=== PATIENT | female | born 1955 | race Caucasian/White ===

== ENCOUNTER 2016-02-25 14:14 | Inpatient (IN) | payer BC, MEDICAID ==
--- NOTE | 2016-02-25 14:52 | ED Physician Chart ---
Chief Complaint/HPI - Patient Information Date Seen:: 02/25/16 Time Seen:: 14:37 Chief Complaint:: rectal pain History of Present Illness:: THIS IS A 60 YEAR OLD FEMALE SENT FROM THE [facility]IOR CARE FOR AN EVALUATION OF HER RECTAL PAIN AND OPEN WOUND WITH A HISTORY OF RECTAL CANCER. SHE ALSO HAS HYPERTENSION, ANEMIA AND MAJOR DEPRESSIVE DISORDER Allergies:: IODINE Historian:: Medical Records Review:: Nurse's Note Reviewed Review of Systems - Review of Systems General/Constitutional: No fever, No chills, No weight loss, No weakness, No diaphoresis, No edema, No loss of appetite Skin: No skin lesions, No rash, No bruising Head: No headache, No light-headedness Eyes: No loss of vision, No pain, No diplopia ENT: No earache, No nasal drainage, No sore throat, No tinnitus Neck: No neck pain, No swelling, No thyromegaly, No stiffness, No mass noted Cardio Vascular: No chest pain, No palpitations, No PND, No orthopnea, No edema Pulmonary: No SOB, No cough, No sputum, No wheezing GI: No nausea, No vomiting, No diarrhea, No pain, No melena, No hematochezia, No constipation, No hematemesis, Other (THERE IS A LESION COMING OUT OF THE RECTUM THAT IS WET SWOLLEN AND TENDER.) G/U: No dysuria, No frequency, No hematuria Musculoskeletal: No bone or joint pain, No back pain, No muscle pain Endocrine: No polyuria, No polydipsia Psychiatric: No prior psych history, No depression, No anxiety, No suicidal ideation Hematopoietic: No bruising, No lymphadenopathy Allergic/Immuno: No urticaria, No angioedema Neurological: No syncope, No focal symptoms, No weakness, No paresthesia, No headache, No seizure, No dizziness, No confusion, No vertigo Past Medical History - Past Medical History Obtainable: Yes Past Medical History: HTN, Other (DEPRESSION) Family History: None Social History: Non Smoker, No Alcohol, No Drug Use Surgical History: None Psychiatricy History: Depression Medication: Reviewed Family Medical History - Family Member Father Hx Family Cancer: Yes Hx Family Coronary Artery Disease: Yes Hx Family Hypertension: Yes Physical Exam - Physical Examination General/Constitutional: Awake, Well-developed, well-nourished, Alert, No distress, GCS 15, Non-toxic appearing, Ambulatory Head: Atraumatic Eyes: Lids, conjuctiva normal, PERRL, EOMI Skin: Nl inspection, No rash, No skin lesions, No ecchymosis, Well hydrated, No lymphadenopathy ENMT: External ears, nose nl, Nasal exam nl, Lips, teeth, gums nl Neck: Nontender, Full ROM w/o pain, No JVD, No nuchal rigidity, No bruit, No mass, No stridor Respiratory: Nl effort/Exclusion, Clear to Auscultation, No Wheeze/Rhonchi/Rales Cardio Vascular: RRR, No murmur, gallop, rubs, NL S1 S2 GI: No tenderness/rebounding/guarding, No organomegaly, No hernia, Normal BS's, Nondistended, No mass/bruits, No McBurney tenderness, Rectum exam nl (THERE IS A LARGE MASS COMING OUT OF THE RECTUM WITH THE SURROUNDING AREA SWELLING AND TENDERNESS.) : No CVA tenderness Extremities: No tenderness or effusion, Full ROM, normal strength in all extremities, No edema, Normal digits & nails Neuro/Psych: Alert/oriented, DTR's symmetric, Normal sensory exam, Normal motor strength, Judgement/insight normal, Mood normal, Normal gait, No focal deficits Misc: normal gait, Normal back, No paraspinal tenderness Labs/Radiology/EKG Results - Lab Results Results: Abnormal Lab Results 02/25/16 02/25/16 02/25/16 14:48 14:48 14:48 WBC 10.1 RBC 3.81 Hgb 10.1 L Hct 30.4 L MCV 79.7 L MCH 26.5 L MCHC Differential 33.3 RDW 16.4 Plt Count 486 H MPV 7.1 Neutrophils % 81.9 H Lymphocytes % 8.4 L Monocytes % 8.1 Eosinophils % 1.2 Basophils % 0.4 PT 10.8 INR 1.08 Sodium 133 L Potassium 4.0 Chloride 102 Carbon Dioxide 30.6 Anion Gap 4.4 L BUN 9 Creatinine 0.4 L Est GFR ( Amer) > 60.0 Est GFR (Non-Af Amer) > 60.0 BUN/Creatinine Ratio 22.5 Glucose 101 Calcium 9.4 Total Bilirubin 0.3 AST 15 ALT 8 Alkaline Phosphatase 106 H Troponin I Total Protein 6.4 Albumin 2.9 L Globulin 3.5 Albumin/Globulin Ratio 0.8 L 02/25/16 14:48 WBC RBC Hgb Hct MCV MCH MCHC Differential RDW Plt Count MPV Neutrophils % Lymphocytes % Monocytes % Eosinophils % Basophils % PT INR Sodium Potassium Chloride Carbon Dioxide Anion Gap BUN Creatinine Est GFR ( Amer) Est GFR (Non-Af Amer) BUN/Creatinine Ratio Glucose Calcium Total Bilirubin AST ALT Alkaline Phosphatase Troponin I < 0.01 L Total Protein Albumin Globulin Albumin/Globulin Ratio - Radiology Results Results: NO FOCAL CONSOLIDATION LEFT LUNG 3mm leison - EKG Interpretations EKG Time:: 15:04 Rhythm: SINUS Challenge: RIGHT Rate: 72 ED Septic Shock - . 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
[2016-02-25 15:10] LABS: % BASOPHILS 0.4 % (0.0-2.0); % EOSINOPHILS 1.2 % (0.0-5.0); % LYMPHOCYTES 8.4 % (20.0-50.0); % MONOCYTES 8.1 % (2.0-10.0); % NEUTROPHILS 81.9 % (40.0-80.0); HEMATOCRIT 30.4 % (35.0-45.0); HEMOGLOBIN 10.1 gm/dL (11.7-15.5); MEAN CELL VOLUME 79.7 fl (81-100); MEAN CORPUSCULAR HEMOGLOBIN 26.5 pg (27.0-31.0); MEAN CORPUSCULAR HGB CONC 33.3 pg (28.0-36.0); MEAN PLATELET VOLUME 7.1 fl; NEUTROPHILE ABSOLUTE 8.4 Th/cmm (1.8-8.0); PLATELET COUNT 486 Th/cmm (150-400); RED BLOOD COUNT 3.81 Mil/cmm (3.80-5.10); RED CELL DISTRIBUTION WIDTH 16.4 % (11.5-20.0); WHITE BLOOD COUNT 10.1 Th/cmm (4.8-10.8)
[2016-02-25 15:28] LABS: ALB/GLOB RATIO 0.8 (1.0-1.8); ALKALINE PHOSPHATASE 106 U/L (34-104); ANION GAP 4.4 (7.0-16.0); BILIRUBIN,TOTAL 0.3 mg/dL (0.3-1.0); BUN - UREA NITROGEN 9 mg/dL (7-25); BUN/CREATININE RATIO 22.5; CALCIUM SERUM 9.4 mg/dL (8.6-10.3); CARBON DIOXIDE 30.6 mEq/L (21.0-31.0); CHLORIDE 102 mEq/L (98-107); CREATININE - SERUM 0.4 mg/dL (0.6-1.2); GLUCOSE 101 mg/dL (70-105); SGOT 15 U/L (13-39); SGPT/ALT 8 U/L (7-52); SODIUM SERUM 133 mEq/L (136-145)
[2016-02-25 15:30] LABS: INR 1.08 (0.5-1.4); PROTHROMBIN TIME (TEST) 10.8 SECONDS (9.5-11.5)
--- NOTE | 2016-02-25 16:09 | Diagnostic Imaging Report ---
CHEST X-RAY: AP view INDICATION: Malignancy COMPARISON: None FINDINGS: Right Port-A-Cath is seen with tip in the right atrium. No focal consolidation pleural effusions. There is 3 mm density of the left lung base. Heart size is normal. Atherosclerosis of the aortic arch is noted with tortuous aorta. Osseous structures are intact. IMPRESSION: No focal airspace consolidation identified 3 mm density of the left lung base, nonspecific, and may represent a small granuloma or may be due to superimposition of bronchovascular structures. Correlation with old exams of the helpful. Given history of malignancy if warranted,short-term follow-up CT of the chest would provide for additional detail and assessment. Right Port-A-Cath with tip in the right atrium. Tortuous aorta with atherosclerosis the aortic arch.
[2016-02-25 16:34] LABS: URINE BILIRUBIN NEGATIVE (NEGATIVE); URINE BLOOD LARGE (NEGATIVE); URINE COLOR YELLOW; URINE GLUCOSE (UA) NEGATIVE (NEGATIVE); URINE KETONE NEGATIVE (NEGATIVE); URINE PROTEIN 100 mg/dL (NEGATIVE); URINE UROBILINOGEN 0.2 E.U./dL (0.2 - 1.0)
[2016-02-25 16:36] LABS: URINE BACTERIA MANY /hpf (NONE SEEN); URINE EPITHELIAL CELLS NONE SEEN /lpf (FEW); URINE RBC >100 /hpf (0-5); URINE WBC >100 /hpf (0-5)
[2016-02-26 00:01] VITALS: BP 122/64
[2016-02-26] MEDS: Hydrocodone/APAP 5mg/325mg Tab PO PRN ×3 (00:33→13:51)
[2016-02-26] MEDS: Sodium Chloride 0.9% 1,000 ML IV SCH (00:52)
[2016-02-26] MEDS ORDERED: Hydrocodone/APAP 10 mg/325 mg Tab PO PRN (11:21)
[2016-02-26] MEDS ORDERED: ONDANSETRON HCL 8 MG PO PRN (11:21)
[2016-02-26] MEDS ORDERED: APAP/Oxycodone 5/325mg Oral Tab PO PRN (11:58)
--- NOTE | 2016-02-26 12:40 | History & Physical Pre-OP ---
CHIEF COMPLAINT: Rectal pain. HISTORY OF PRESENT ILLNESS: This is a 60-year-old lady with history of rectal cancer diagnosed about 2 years ago, status post colon resection with colostomy placement, who has been experiencing worsening rectal pain for the last couple of weeks or so. Apparently, the patient also has had an open wound around the rectum for a few days and has been noted to be draining. She denies any fevers, denies any UTI symptomatology and denies any previous similar symptoms. As mentioned above, she was diagnosed with cancer about 2 years ago and has a Perm-A-Cath where she gets chemotherapy on a weekly basis. She is under the care of Dr. Corona. PAST MEDICAL HISTORY: As noted above, also history of hypertension, anemia and depressive disorder. PAST SURGICAL HISTORY: As noted above. FAMILY HISTORY: There is a history of CA. ALLERGIES: IODINE AND PROPOXYPHENE. MEDICATIONS: As an outpatient, iron sulfate 325 b.i.d., atenolol 25 daily, Percocet 5/325 q. 8 hours p.r.n. for severe pain, Tylenol 650 q. 4 p.r.n. for mild pain, [place] 10/325 q. 4 p.r.n. for breakthrough pain, Zofran 8 mg q. 8 hours p.r.n. for nausea, vomiting, Zoloft 50 mg every day, Ativan 0.5 q. 6 p.r.n. for anxiety REVIEW OF SYSTEMS: CONSTITUTIONAL: She denies any fever or chills. CARDIAC: No chest pain, palpitations. PULMONARY: No cough or sputum production. GASTROINTESTINAL: Please refer to the HPI. She also was admitted to [facility] ([place]) on the where she was diagnosed with perianal abscess. GENITOURINARY: Denies any dysuria or hematuria. NEUROLOGIC: No changes in vision. PHYSICAL EXAMINATION: VITAL SIGNS: Temperature 99.9, pulse 77, respirations 18, BP 122/73, satting 94% on room air, T-max was 101.1. GENERAL: She is a well-developed, thin female, not in acute distress, lying in bed. HEAD AND NECK: Normocephalic, atraumatic. Pupils reactive to light. CARDIOVASCULAR: Regular rate and rhythm without any murmurs. LUNGS: Clear to auscultation bilaterally. ABDOMEN: Soft, supple. There is a colostomy bag in place. She does have bowel sounds. RECTAL: There is surrounding erythema and swelling and tenderness in the perianal area. Currently, there is no drainage noted. This erythema is more pronounced on the right medial buttock area. LABORATORY DATA: White count 10.1, H and H 10/30, platelet count of 486. INR is 1.08. Sodium 133, potassium 4.0, BUN 4, creatinine 0.4, glucose 101. Alkaline phosphatase 106, troponins less than 0.01. Albumin 2.9. UA showed positive for protein, large blood, large leukocyte esterase, over 100 rbc's and over 100 wbc's. Blood cultures showed Gram-positive cocci. DIAGNOSTICS: Chest x-ray shows 3 mm density of the left lung base. There is a right Port-A-Cath noted at the right atrium. IMPRESSION: 1. Fever, sepsis. 2. Gram-positive cocci bacteremia. 3. Perirectal abscess/cellulitis. Given her history of colorectal CA, we will have to rule out fistula. 4. Urinary tract infection. 5. History of rectal cancer, currently undergoing chemotherapy. 6. Left lung base density, likely representing a small granuloma. 7. History of chronic anemia. 8. History of depression. PLAN: The patient has been admitted to the medical/surgical floor for management and care. The patient has been placed on IV antibiotics, namely Rocephin and I will add vanco given her current blood culture findings. A rectal wound culture will be ordered. We will follow urine C and S. Will get MR from [facility] where pt apparently had a CT scan of the pelvis and abdomen for further evaluation. The patient will be placed on supportive care for pain management and will be kept on her other medications as scheduled. Oncology eval with Dr. Corona will be asked for as well. JOB# [id number] MELISSA
[2016-02-26] MEDS ORDERED: APAP/Oxycodone 5/325mg Oral Tab PO SCH (15:00)
[2016-02-26] MEDS: Ferrous Sulfate 325 MG TAB PO SCH (16:16)
[2016-02-26] MEDS ORDERED: cefTRIAXone 1 GM in Sodium Chloride 0.9% 50 ML IV SCH (18:00)
--- NOTE | 2016-02-26 18:11 | Consultation ---
HEMATOLOGY/ONCOLOGY CONSULTATION REFERRING PHYSICIAN: Dr. Brown. REASON FOR CONSULTATION: Rectal cancer. HISTORY OF PRESENT ILLNESS: The patient is a 60-year-old female who was admitted with pain and fever and discharge from the rectal area. She was found to have perirectal abscess on the left side and admitted and started on IV antibiotics. She was also found to have urinary tract infection. She is known to me for the past over 2 years. She initially presented with locally advanced rectal cancer treated with chemo radiation and then declined surgery and she did not receive any treatment for a while and then presented with progressive disease and fungating mass and was started on chemotherapy for palliative purpose. The patient felt better and the rectal mass regressed and improved over time. She was initially managed with colostomy at the time of diagnosis to allow delivery of the radiation therapy and chemotherapy and she continued to have the colostomy until now. SOCIAL HISTORY: She resides in a nursing facility. PAST MEDICAL HISTORY: Hypertension and depression. MEDICATIONS: Reviewed. PHYSICAL EXAMINATION: GENERAL: She is awake, alert, and oriented. VITAL SIGNS: T-max 101.1. HEENT: Mild pallor. No mucosal lesions. CHEST: Clear. MediPort in place. ABDOMEN: Colostomy in place. Anal area, there is a fungating mass in the rectum and there is left side perianal ulcer with purulent base that looks like it was an abscess and it opened recently. LABORATORY DATA: White count 10.1 and platelets 486,000. Chemistry was seen. ASSESSMENT AND PLAN: 1. Locally advanced rectal cancer, unresectable. The goal of treatment is palliative. 2. Perianal abscess and possible fistula. I will obtain CT scan of the abdomen and pelvis for evaluation. I will follow up on further chemotherapy at this time until the antibiotics therapy is completed. She will require wound care for dressing of the perianal ulcer. Thank you Dr. Brown for the opportunity to participate in the care of this interesting case for you. JOB# [id number]
[2016-02-26] MEDS ORDERED: Non-Formulary Item 1 EA (Temazepam [Restoril] 30 MG) PO SCH (21:00)
[2016-02-27 06:44] LABS: % BASOPHILS 0.1 % (0.0-2.0); % EOSINOPHILS 2.3 % (0.0-5.0); % LYMPHOCYTES 13.3 % (20.0-50.0); % MONOCYTES 8.1 % (2.0-10.0); % NEUTROPHILS 76.2 % (40.0-80.0); HEMOGLOBIN 11.6 gm/dL (11.7-15.5); MEAN CELL VOLUME 80.7 fl (81-100); MEAN CORPUSCULAR HEMOGLOBIN 26.3 pg (27.0-31.0); MEAN CORPUSCULAR HGB CONC 32.6 pg (28.0-36.0); MEAN PLATELET VOLUME 7.6 fl; NEUTROPHILE ABSOLUTE 5.4 Th/cmm (1.8-8.0); PLATELET COUNT 496 Th/cmm (150-400); RED BLOOD COUNT 4.43 Mil/cmm (3.80-5.10); RED CELL DISTRIBUTION WIDTH 16.9 % (11.5-20.0)
[2016-02-27 06:49] LABS: ANION GAP 10.4 (7.0-16.0); BUN - UREA NITROGEN 5 mg/dL (7-25); CALCIUM SERUM 9.7 mg/dL (8.6-10.3); CARBON DIOXIDE 26.5 mEq/L (21.0-31.0); CHLORIDE 104 mEq/L (98-107); CREATININE - SERUM 0.5 mg/dL (0.6-1.2); GLUCOSE 86 mg/dL (70-105); POTASSIUM SERUM 3.9 mEq/L (3.5-5.1); SODIUM SERUM 137 mEq/L (136-145)
[2016-02-27 08:00] LABS: HEMATOCRIT 35.7 % (35.0-45.0); WHITE BLOOD COUNT 7.1 Th/cmm (4.8-10.8)
[2016-02-27] MEDS: Ferrous Sulfate 325 MG TAB PO SCH ×2 (08:32→16:13)
[2016-02-27] MEDS: Enoxaparin 40 mg/0.4 mL 0.4mL Syr SUBQ SCH (08:33)
[2016-02-27] MEDS: Hydrocodone/APAP 5mg/325mg Tab PO PRN ×2 (13:25→20:02)
[2016-02-28] MEDS: Sodium Chloride 0.9% 1,000 ML IV SCH ×2 (03:12→21:26)
[2016-02-28] MEDS: Hydrocodone/APAP 5mg/325mg Tab PO PRN ×3 (05:24→17:39)
[2016-02-28 06:24] LABS: HEMOGLOBIN 10.4 gm/dL (11.7-15.5)
[2016-02-28 06:43] LABS: ANION GAP 5.2 (7.0-16.0); BUN - UREA NITROGEN 4 mg/dL (7-25); CALCIUM SERUM 9.1 mg/dL (8.6-10.3); CARBON DIOXIDE 25.6 mEq/L (21.0-31.0); CHLORIDE 109 mEq/L (98-107); CREATININE - SERUM 0.5 mg/dL (0.6-1.2); GLUCOSE 85 mg/dL (70-105); POTASSIUM SERUM 3.8 mEq/L (3.5-5.1); SODIUM SERUM 136 mEq/L (136-145)
[2016-02-28 06:47] LABS: % BASOPHILS 0.7 % (0.0-2.0); % EOSINOPHILS 3.2 % (0.0-5.0); % LYMPHOCYTES 15.6 % (20.0-50.0); % MONOCYTES 9.2 % (2.0-10.0); % NEUTROPHILS 71.3 % (40.0-80.0); MEAN CELL VOLUME 81.4 fl (81-100); MEAN CORPUSCULAR HEMOGLOBIN 26.8 pg (27.0-31.0); MEAN CORPUSCULAR HGB CONC 32.9 pg (28.0-36.0); MEAN PLATELET VOLUME 7.5 fl; NEUTROPHILE ABSOLUTE 4.3 Th/cmm (1.8-8.0); PLATELET COUNT 406 Th/cmm (150-400); RED BLOOD COUNT 3.87 Mil/cmm (3.80-5.10); RED CELL DISTRIBUTION WIDTH 16.7 % (11.5-20.0)
[2016-02-28 06:56] LABS: HEMATOCRIT 31.5 % (35.0-45.0)
[2016-02-28] MEDS: Ferrous Sulfate 325 MG TAB PO SCH (08:48)
[2016-02-28] MEDS: Enoxaparin 40 mg/0.4 mL 0.4mL Syr SUBQ SCH (08:50)
--- NOTE | 2016-02-28 12:27 | General Progress Note ---
Subjective - Review of Systems Service Date: 02/28/16 Subjective: Pain is less Objective - Results Result Diagrams: 02/28/16 06:05 02/28/16 06:05 Recent Labs: Laboratory Last Values WBC 6.0 Th/cmm (4.8-10.8) 02/28/16 06:05 RBC 3.87 Mil/cmm (3.80-5.10) 02/28/16 06:05 Hgb 10.4 gm/dL (11.7-15.5) L 02/28/16 06:05 Hct 31.5 % (35.0-45.0) L D 02/28/16 06:05 MCV 81.4 fl (81-100) 02/28/16 06:05 MCH 26.8 pg (27.0-31.0) L 02/28/16 06:05 MCHC Differential 32.9 pg (28.0-36.0) 02/28/16 06:05 RDW 16.7 % (11.5-20.0) 02/28/16 06:05 Plt Count 406 Th/cmm (150-400) H 02/28/16 06:05 MPV 7.5 fl 02/28/16 06:05 Neutrophils % 71.3 % (40.0-80.0) 02/28/16 06:05 Lymphocytes % 15.6 % (20.0-50.0) L 02/28/16 06:05 Monocytes % 9.2 % (2.0-10.0) 02/28/16 06:05 Eosinophils % 3.2 % (0.0-5.0) 02/28/16 06:05 Basophils % 0.7 % (0.0-2.0) 02/28/16 06:05 PT 10.8 SECONDS (9.5-11.5) 02/25/16 14:48 INR 1.08 (0.5-1.4) 02/25/16 14:48 Sodium 136 mEq/L (136-145) 02/28/16 06:05 Potassium 3.8 mEq/L (3.5-5.1) 02/28/16 06:05 Chloride 109 mEq/L (98-107) H 02/28/16 06:05 Carbon Dioxide 25.6 mEq/L (21.0-31.0) 02/28/16 06:05 Anion Gap 5.2 (7.0-16.0) L 02/28/16 06:05 BUN 4 mg/dL (7-25) L 02/28/16 06:05 Creatinine 0.5 mg/dL (0.6-1.2) L 02/28/16 06:05 Est GFR ( Amer) > 60.0 ml/min 02/28/16 06:05 Est GFR (Non-Af Amer) > 60.0 ml/min 02/28/16 06:05 BUN/Creatinine Ratio 8.0 02/28/16 06:05 Glucose 85 mg/dL (70-105) 02/28/16 06:05 Calcium 9.1 mg/dL (8.6-10.3) 02/28/16 06:05 Magnesium 1.8 mg/dL (1.9-2.7) L 02/28/16 06:05 Total Bilirubin 0.3 mg/dL (0.3-1.0) 02/25/16 14:48 AST 15 U/L (13-39) 02/25/16 14:48 ALT 8 U/L (7-52) 02/25/16 14:48 Alkaline Phosphatase 106 U/L (34-104) H 02/25/16 14:48 Troponin I < 0.01 ng/mL (0.01-0.05) L 02/25/16 14:48 Total Protein 6.4 gm/dL (6.0-8.3) 02/25/16 14:48 Albumin 2.9 gm/dL (3.7-5.3) L 02/25/16 14:48 Globulin 3.5 gm/dL 02/25/16 14:48 Albumin/Globulin Ratio 0.8 (1.0-1.8) L 02/25/16 14:48 Urine Source CLEAN C 02/25/16 13:30 Urine Color YELLOW 02/25/16 13:30 Urine Clarity CLOUDY (CLEAR) H 02/25/16 13:30 Urine pH 7.0 02/25/16 13:30 Ur Specific [place] 1.015 (1.005-1.030) 02/25/16 13:30 Urine Protein 100 mg/dL (NEGATIVE) H 02/25/16 13:30 Urine Glucose (UA) NEGATIVE mg/dL (NEGATIVE) 02/25/16 13:30 Urine Ketones NEGATIVE mg/dL (NEGATIVE) 02/25/16 13:30 Urine Blood LARGE (NEGATIVE) H 02/25/16 13:30 Urine Nitrate NEGATIVE (NEGATIVE) 02/25/16 13:30 Urine Bilirubin NEGATIVE (NEGATIVE) 02/25/16 13:30 Urine Urobilinogen 0.2 E.U./dL (0.2 - 1.0) 02/25/16 13:30 Ur Leukocyte Esterase LARGE (NEGATIVE) H 02/25/16 13:30 Urine RBC >100 /hpf (0-5) H 02/25/16 13:30 Urine WBC >100 /hpf (0-5) H 02/25/16 13:30 Ur Epithelial Cells NONE SEEN /lpf (FEW) 02/25/16 13:30 Urine Bacteria MANY /hpf (NONE SEEN) 02/25/16 13:30 Vancomycin Trough 7.1 ug/mL (10-20) L 02/28/16 11:15 - Physical Exam Vitals and I&O: Vital Signs Temp 98.4 F 02/28/16 04:00 Pulse 97 02/28/16 08:46 Resp 19 02/28/16 04:00 BP 124/63 02/28/16 08:46 Pulse Ox 98 02/28/16 04:00 Intake & Output 02/27/16 02/28/16 02/28/16 18:59 06:59 18:59 Intake Total 950 240 Output Total 350 600 Balance 600 -360 Intake: Intake, IV Amount 300 Vancomycin HCl 1 gm In 250 Sodium Chloride 0.9% 250 ml @ 166.667 mls/hr IV Q24H EZRA Rx#:[id number] cefTRIAXone 1 gm In 50 Sodium Chloride 0.9% 50 ml @ 100 mls/hr IV Q24HR EZRA Rx#:[id number] Oral 650 240 Output: Urine 350 600 Other: # Voids 2 Active Medications: Current Medications Acetaminophen (Tylenol) 650 mg PO Q4HR PRN PRN Reason: Fever > 101 Stop: 04/26/16 11:20 Acetaminophen/Hydrocodone Bitart ([place] 5mg/325mg) 1 tab PO Q6H PRN PRN Reason: Pain (Moderate) Stop: 04/25/16 23:46 Last Admin: 02/28/16 11:37 Dose: 1 tab Acetaminophen/Hydrocodone Bitart ([place] 10 Mg/325 Mg) 1 tab PO Q4H PRN PRN Reason: Pain (Moderate) Stop: 04/26/16 11:20 Atenolol (Tenormin) 25 mg PO DAILY [facility] Stop: 04/26/16 11:29 Last Admin: 02/28/16 08:46 Dose: 25 mg Enoxaparin Sodium (Lovenox) 40 mg SUBQ DAILY [facility] Stop: 04/27/16 08:59 Last Admin: 02/28/16 08:50 Dose: 40 mg Ferrous Sulfate (Iron) 325 mg PO BID [facility] Stop: 04/26/16 16:59 Last Admin: 02/28/16 08:48 Dose: 325 mg Ceftriaxone Sodium 1 gm/ (Sodium Chloride) 50 mls @ 100 mls/hr IV Q24HR [facility] Stop: 04/26/16 17:59 Last Infusion: 02/27/16 09:33 Dose: Infused Sodium Chloride (Nacl 0.9%) 1,000 mls @ 75 mls/hr IV .[id number] [facility] Stop: 04/25/16 23:55 Last Admin: 02/28/16 03:12 Dose: 75 mls/hr Vancomycin HCl 1 gm/ Sodium (Chloride) 250 mls @ 166.667 mls/hr IV Q24H [facility] Stop: 04/26/16 12:14 Last Admin: 02/27/16 11:35 Dose: 166.67 mls/hr Lorazepam (Ativan) 1 mg IVP Q8HR PRN; Protocol PRN Reason: Agitation Stop: 04/25/16 23:48 Last Admin: 02/26/16 20:48 Dose: 1 mg Lorazepam (Ativan) 0.5 mg PO Q6HR PRN; Protocol PRN Reason: Agitation Stop: 04/26/16 11:20 Last Admin: 02/26/16 12:35 Dose: 0.5 mg Ondansetron HCl (Zofran Odt) 8 mg PO Q8H PRN PRN Reason: NAUSEA Stop: 04/26/16 11:28 Oxycodone/Acetaminophen (Percocet 5/325mg Oral Tab) 1 tab PO Q4H PRN PRN Reason: Pain (Severe) Stop: 04/26/16 11:57 Last Admin: 02/27/16 08:32 Dose: 1 tab Sertraline HCl (Zoloft) 50 mg PO DAILY [facility]RA PRN Reason: Protocol Stop: 04/26/16 11:29 Last Admin: 02/28/16 08:48 Dose: 50 mg Temazepam (Restoril) 30 mg PO HS PRN PRN Reason: SLEEP Stop: 04/26/16 11:29 Last Admin: 02/27/16 22:16 Dose: 30 mg Zolpidem Tartrate (Ambien) 5 mg PO HS PRN PRN Reason: Insomnia Stop: 04/25/16 23:50 General: Alert, Oriented x3, Cooperative, No acute distress HEENT: Atraumatic Neck: Supple Cardiovascular: Regular rate Lungs: Clear to auscultation Abdomen: Bowel sounds, Soft Extremities: Other (No edema) Neurological: Normal gait Skin: Other (Redness and swealling in perianal area) Assessment/Plan - Assessment Assessment: Patieny is awake, alert, calm, in no acute distress. Pain in anal area improving - Plan Plan: Abdominal and Pelvic CT are requested. Will continue to monitoring
--- NOTE | 2016-02-29 00:01 | Admit Criteria Form ---
Admit Criteria Forms - Admit Criteria Diagnosis: URINARY COMPLICATIONS Clinical Indications for Inpatient Care (Place 'X' for any and all applicable criteria): Ongoing inpatient care may be indicated for urinary complications with ANY ONE of the following: [X ]I. Urinary tract infection requiring inpatient care as indicated by ANY ONE of the following(8)(19)(20): [ ]a) Severe symptoms (eg, high fever, severe pain) [ ]b) Vomiting or dehydration requiring ongoing inpatient care [ X]c) IV antibiotic needs that cannot be managed at lower level of care [ ]d) Hemodynamic instability [ ]e) Obstruction of collecting system by stone or tumor [ ]II. Urinary retention requiring drainage or surgery (3)(4)(5)(17)(18) [ ]III. Renal failure (Use Renal Failure Criteria for further information.) [ ]IV. Oliguria(30) [ ]V. Post obstructive diuresis requiring close monitoring of urine output and intravenous compensation for excessive fluid losses(33) Extended stay beyond goal length of stay for primary condition may be needed until ALL of the following are present(3)(4)(5)(8): [ ]a) Renal function (creatinine) at baseline, or daily decreases in creatinine consistent with renal function return [ ]b) Voiding adequately or with urinary catheter or percutaneous suprapubic tube and management regimen in place that is performable at lower level of care. [ ]c) Urine output adequate [ ]d) Fever absent or resolving [ ]e) Infection absent or treatable at next level of care The original [employer] content created by [employer] has been revised. The portions of the content which have been revised are identified through the use of italic text or in bold, and [facility] [employer] has neither reviewed nor approved the modified material. All other unmodified content is copyright [facility] [employer] Please see references footnoted in the original [facility] [employer] edition 2016 Admit Criteria Met?: Yes
[2016-02-29] MEDS: Hydrocodone/APAP 5mg/325mg Tab PO PRN ×2 (06:10→14:16)
[2016-02-29 06:19] LABS: % BASOPHILS 0.1 % (0.0-2.0); % LYMPHOCYTES 10.3 % (20.0-50.0); % MONOCYTES 8.2 % (2.0-10.0); % NEUTROPHILS 78.4 % (40.0-80.0); HEMATOCRIT 30.7 % (35.0-45.0); HEMOGLOBIN 10.3 gm/dL (11.7-15.5); MEAN CORPUSCULAR HEMOGLOBIN 26.8 pg (27.0-31.0); MEAN CORPUSCULAR HGB CONC 33.5 pg (28.0-36.0); MEAN PLATELET VOLUME 7.2 fl; NEUTROPHILE ABSOLUTE 6.1 Th/cmm (1.8-8.0); PLATELET COUNT 433 Th/cmm (150-400); RED BLOOD COUNT 3.84 Mil/cmm (3.80-5.10); RED CELL DISTRIBUTION WIDTH 16.8 % (11.5-20.0)
[2016-02-29 06:22] LABS: WHITE BLOOD COUNT 7.7 Th/cmm (4.8-10.8)
[2016-02-29 09:09] LABS: ALB/GLOB RATIO 0.9 (1.0-1.8); ALKALINE PHOSPHATASE 85 U/L (34-104); ANION GAP 6.6 (7.0-16.0); BILIRUBIN,TOTAL 0.2 mg/dL (0.3-1.0); BUN - UREA NITROGEN 5 mg/dL (7-25); CALCIUM SERUM 9.1 mg/dL (8.6-10.3); CARBON DIOXIDE 27.2 mEq/L (21.0-31.0); CHLORIDE 109 mEq/L (98-107); CREATININE - SERUM 0.5 mg/dL (0.6-1.2); GLUCOSE 84 mg/dL (70-105); POTASSIUM SERUM 3.8 mEq/L (3.5-5.1); SGOT 11 U/L (13-39); SGPT/ALT 3 U/L (7-52); SODIUM SERUM 139 mEq/L (136-145)
[2016-02-29] MEDS: Ferrous Sulfate 325 MG TAB PO SCH ×2 (09:15→16:43)
[2016-02-29] MEDS: Enoxaparin 40 mg/0.4 mL 0.4mL Syr SUBQ SCH (09:17)
--- NOTE | 2016-02-29 09:45 | General Progress Note ---
Subjective - Review of Systems Service Date: 02/29/16 Subjective: Pain is less Objective - Results Result Diagrams: 02/29/16 05:50 02/29/16 05:50 Recent Labs: Laboratory Last Values WBC 7.7 Th/cmm (4.8-10.8) D 02/29/16 05:50 RBC 3.84 Mil/cmm (3.80-5.10) 02/29/16 05:50 Hgb 10.3 gm/dL (11.7-15.5) L 02/29/16 05:50 Hct 30.7 % (35.0-45.0) L 02/29/16 05:50 MCV 80.0 fl (81-100) L 02/29/16 05:50 MCH 26.8 pg (27.0-31.0) L 02/29/16 05:50 MCHC Differential 33.5 pg (28.0-36.0) 02/29/16 05:50 RDW 16.8 % (11.5-20.0) 02/29/16 05:50 Plt Count 433 Th/cmm (150-400) H 02/29/16 05:50 MPV 7.2 fl 02/29/16 05:50 Neutrophils % 78.4 % (40.0-80.0) 02/29/16 05:50 Lymphocytes % 10.3 % (20.0-50.0) L 02/29/16 05:50 Monocytes % 8.2 % (2.0-10.0) 02/29/16 05:50 Eosinophils % 3.0 % (0.0-5.0) 02/29/16 05:50 Basophils % 0.1 % (0.0-2.0) 02/29/16 05:50 PT 10.8 SECONDS (9.5-11.5) 02/25/16 14:48 INR 1.08 (0.5-1.4) 02/25/16 14:48 Sodium 139 mEq/L (136-145) 02/29/16 05:50 Potassium 3.8 mEq/L (3.5-5.1) 02/29/16 05:50 Chloride 109 mEq/L (98-107) H 02/29/16 05:50 Carbon Dioxide 27.2 mEq/L (21.0-31.0) 02/29/16 05:50 Anion Gap 6.6 (7.0-16.0) L 02/29/16 05:50 BUN 5 mg/dL (7-25) L 02/29/16 05:50 Creatinine 0.5 mg/dL (0.6-1.2) L 02/29/16 05:50 Est GFR ( Amer) > 60.0 ml/min 02/29/16 05:50 Est GFR (Non-Af Amer) > 60.0 ml/min 02/29/16 05:50 BUN/Creatinine Ratio 10.0 02/29/16 05:50 Glucose 84 mg/dL (70-105) 02/29/16 05:50 Calcium 9.1 mg/dL (8.6-10.3) 02/29/16 05:50 Magnesium 1.8 mg/dL (1.9-2.7) L 02/28/16 06:05 Total Bilirubin 0.2 mg/dL (0.3-1.0) L 02/29/16 05:50 AST 11 U/L (13-39) L 02/29/16 05:50 ALT 3 U/L (7-52) L 02/29/16 05:50 Alkaline Phosphatase 85 U/L (34-104) 02/29/16 05:50 Troponin I < 0.01 ng/mL (0.01-0.05) L 02/25/16 14:48 Total Protein 6.1 gm/dL (6.0-8.3) 02/29/16 05:50 Albumin 2.8 gm/dL (3.7-5.3) L 02/29/16 05:50 Globulin 3.3 gm/dL 02/29/16 05:50 Albumin/Globulin Ratio 0.9 (1.0-1.8) L 02/29/16 05:50 Urine Source CLEAN C 02/25/16 13:30 Urine Color YELLOW 02/25/16 13:30 Urine Clarity CLOUDY (CLEAR) H 02/25/16 13:30 Urine pH 7.0 02/25/16 13:30 Ur Specific [place] 1.015 (1.005-1.030) 02/25/16 13:30 Urine Protein 100 mg/dL (NEGATIVE) H 02/25/16 13:30 Urine Glucose (UA) NEGATIVE mg/dL (NEGATIVE) 02/25/16 13:30 Urine Ketones NEGATIVE mg/dL (NEGATIVE) 02/25/16 13:30 Urine Blood LARGE (NEGATIVE) H 02/25/16 13:30 Urine Nitrate NEGATIVE (NEGATIVE) 02/25/16 13:30 Urine Bilirubin NEGATIVE (NEGATIVE) 02/25/16 13:30 Urine Urobilinogen 0.2 E.U./dL (0.2 - 1.0) 02/25/16 13:30 Ur Leukocyte Esterase LARGE (NEGATIVE) H 02/25/16 13:30 Urine RBC >100 /hpf (0-5) H 02/25/16 13:30 Urine WBC >100 /hpf (0-5) H 02/25/16 13:30 Ur Epithelial Cells NONE SEEN /lpf (FEW) 02/25/16 13:30 Urine Bacteria MANY /hpf (NONE SEEN) 02/25/16 13:30 Vancomycin Trough 7.1 ug/mL (10-20) L 02/28/16 11:15 - Physical Exam Vitals and I&O: Vital Signs Temp 98.4 F 02/29/16 04:00 Pulse 73 02/29/16 09:15 Resp 17 02/29/16 04:00 BP 138/86 02/29/16 09:15 Pulse Ox 98 02/29/16 04:00 Intake & Output 02/28/16 02/29/16 02/29/16 18:59 06:59 18:59 Intake Total 1240 350 Balance 1240 350 Intake: Intake, IV Amount 1000 250 Sodium Chloride 0.9% 1, 1000 000 ml @ 75 mls/hr IV . [id number] EZRA Rx#:[id number] Vancomycin HCl 1 gm In 250 Sodium Chloride 0.9% 250 ml @ 165 mls/hr IV Q12H EZRA Rx#:[id number] Oral 240 100 Other: # Voids 3 Active Medications: Current Medications Acetaminophen (Tylenol) 650 mg PO Q4HR PRN PRN Reason: Fever > 101 Stop: 04/26/16 11:20 Acetaminophen/Hydrocodone Bitart ([place] 5mg/325mg) 1 tab PO Q6H PRN PRN Reason: Pain (Moderate) Stop: 04/25/16 23:46 Last Admin: 02/29/16 06:10 Dose: 1 tab Acetaminophen/Hydrocodone Bitart ([place] 10 Mg/325 Mg) 1 tab PO Q4H PRN PRN Reason: Pain (Moderate) Stop: 04/26/16 11:20 Atenolol (Tenormin) 25 mg PO DAILY [facility] Stop: 04/26/16 11:29 Last Admin: 02/29/16 09:15 Dose: 25 mg Enoxaparin Sodium (Lovenox) 40 mg SUBQ DAILY [facility] Stop: 04/27/16 08:59 Last Admin: 02/29/16 09:17 Dose: 40 mg Ferrous Sulfate (Iron) 325 mg PO BID [facility] Stop: 04/26/16 16:59 Last Admin: 02/29/16 09:15 Dose: 325 mg Ceftriaxone Sodium 1 gm/ (Sodium Chloride) 50 mls @ 100 mls/hr IV Q24HR [facility] Stop: 04/26/16 17:59 Last Infusion: 02/27/16 09:33 Dose: Infused Sodium Chloride (Nacl 0.9%) 1,000 mls @ 75 mls/hr IV .[id number] [facility] Stop: 04/25/16 23:55 Last Admin: 02/28/16 21:26 Dose: 75 mls/hr Vancomycin HCl 1 gm/ Sodium (Chloride) 250 mls @ 165 mls/hr IV Q12H [facility] Stop: 04/28/16 20:59 Last Admin: 02/29/16 09:16 Dose: 165 mls/hr Lorazepam (Ativan) 1 mg IVP Q8HR PRN; Protocol PRN Reason: Agitation Stop: 04/25/16 23:48 Last Admin: 02/26/16 20:48 Dose: 1 mg Lorazepam (Ativan) 0.5 mg PO Q6HR PRN; Protocol PRN Reason: Agitation Stop: 04/26/16 11:20 Last Admin: 02/26/16 12:35 Dose: 0.5 mg Miscellaneous (Vancomycin Iv Per Pharmacy) 1 ea MC PRN PRN PRN Reason: VANCOMYCIN DOSING Stop: 04/28/16 13:00 Ondansetron HCl (Zofran Odt) 8 mg PO Q8H PRN PRN Reason: NAUSEA Stop: 04/26/16 11:28 Oxycodone/Acetaminophen (Percocet 5/325mg Oral Tab) 1 tab PO Q4H PRN PRN Reason: Pain (Severe) Stop: 04/26/16 11:57 Last Admin: 02/27/16 08:32 Dose: 1 tab Sertraline HCl (Zoloft) 50 mg PO DAILY [facility] PRN Reason: Protocol Stop: 04/26/16 11:29 Last Admin: 02/29/16 09:15 Dose: 50 mg Temazepam (Restoril) 30 mg PO HS PRN PRN Reason: SLEEP Stop: 04/26/16 11:29 Last Admin: 02/28/16 21:26 Dose: 30 mg Zolpidem Tartrate (Ambien) 5 mg PO HS PRN PRN Reason: Insomnia Stop: 04/25/16 23:50 General: Alert, Oriented x3, Cooperative, No acute distress HEENT: Atraumatic Neck: Supple Cardiovascular: Regular rate Lungs: Clear to auscultation Abdomen: Bowel sounds Extremities: Other (No edema) Neurological: Normal gait Skin: Other (Perianal redness improving) Psych/Mental Status: Mental status NL Assessment/Plan - Assessment Assessment: Patieny is awake, alert, calm, in no acute distress. Pain in anal area improving. CT done - Plan Plan: Awaiting Abdominal and Pelvic CT result. Will continue same management
--- NOTE | 2016-02-29 11:13 | Diagnostic Imaging Report ---
CT scan abdomen and pelvis without intravenous contrast HISTORY: Rectal cancer, perianal abscess Total DLP equals 330 CTDI equals 7.2 Axial sections were obtained from the xiphoid process down to the pubic symphysis. Prior exams are not available for comparison. Limited sections through the lower chest demonstrate a moderate to large hiatal hernia. The liver exhibits a homogeneous parenchyma. No focal lesions. The spleen is somewhat generous in size. Multiple gallstones are seen. No focal abnormality seen in the region of the pancreas. No focal renal lesions. No hydronephrosis. Changes of an ostomy noted over the left lower abdomen. Generalized increased density is seen in the lower pelvis with obscuration of the descending colon, sigmoid colon, and rectum. Small air collections noted in the perianal region. Inflammatory change cannot be excluded. No discrete abscess is outlined. No free fluid in the pelvis. Degenerative changes seen in the spine. IMPRESSION: 1. Surgical changes associated with ostomy placement over the left lower abdomen. Associated abnormal density in the lower pelvis without delineation of the sigmoid colon and rectal structures. 2. Small air collections within the perianal area. Inflammatory change cannot be excluded. No discrete abscess or abnormal fluid collections are seen 3. Findings consistent with cholelithiasis 4. Moderate to large hiatal hernia
[2016-02-29] MEDS: Sodium Chloride 0.9% 1,000 ML IV SCH (15:00)
[2016-03-01] MEDS: Sodium Chloride 0.9% 1,000 ML IV SCH (06:48)
--- NOTE | 2016-03-01 09:06 | General Progress Note ---
Subjective - Review of Systems Service Date: 03/01/16 Subjective: Pain is less Objective - Results Result Diagrams: 02/29/16 05:50 02/29/16 05:50 Recent Labs: Laboratory Last Values WBC 7.7 Th/cmm (4.8-10.8) D 02/29/16 05:50 RBC 3.84 Mil/cmm (3.80-5.10) 02/29/16 05:50 Hgb 10.3 gm/dL (11.7-15.5) L 02/29/16 05:50 Hct 30.7 % (35.0-45.0) L 02/29/16 05:50 MCV 80.0 fl (81-100) L 02/29/16 05:50 MCH 26.8 pg (27.0-31.0) L 02/29/16 05:50 MCHC Differential 33.5 pg (28.0-36.0) 02/29/16 05:50 RDW 16.8 % (11.5-20.0) 02/29/16 05:50 Plt Count 433 Th/cmm (150-400) H 02/29/16 05:50 MPV 7.2 fl 02/29/16 05:50 Neutrophils % 78.4 % (40.0-80.0) 02/29/16 05:50 Lymphocytes % 10.3 % (20.0-50.0) L 02/29/16 05:50 Monocytes % 8.2 % (2.0-10.0) 02/29/16 05:50 Eosinophils % 3.0 % (0.0-5.0) 02/29/16 05:50 Basophils % 0.1 % (0.0-2.0) 02/29/16 05:50 PT 10.8 SECONDS (9.5-11.5) 02/25/16 14:48 INR 1.08 (0.5-1.4) 02/25/16 14:48 Sodium 139 mEq/L (136-145) 02/29/16 05:50 Potassium 3.8 mEq/L (3.5-5.1) 02/29/16 05:50 Chloride 109 mEq/L (98-107) H 02/29/16 05:50 Carbon Dioxide 27.2 mEq/L (21.0-31.0) 02/29/16 05:50 Anion Gap 6.6 (7.0-16.0) L 02/29/16 05:50 BUN 5 mg/dL (7-25) L 02/29/16 05:50 Creatinine 0.5 mg/dL (0.6-1.2) L 02/29/16 05:50 Est GFR ( Amer) > 60.0 ml/min 02/29/16 05:50 Est GFR (Non-Af Amer) > 60.0 ml/min 02/29/16 05:50 BUN/Creatinine Ratio 10.0 02/29/16 05:50 Glucose 84 mg/dL (70-105) 02/29/16 05:50 Calcium 9.1 mg/dL (8.6-10.3) 02/29/16 05:50 Magnesium 1.8 mg/dL (1.9-2.7) L 02/28/16 06:05 Total Bilirubin 0.2 mg/dL (0.3-1.0) L 02/29/16 05:50 AST 11 U/L (13-39) L 02/29/16 05:50 ALT 3 U/L (7-52) L 02/29/16 05:50 Alkaline Phosphatase 85 U/L (34-104) 02/29/16 05:50 Troponin I < 0.01 ng/mL (0.01-0.05) L 02/25/16 14:48 Total Protein 6.1 gm/dL (6.0-8.3) 02/29/16 05:50 Albumin 2.8 gm/dL (3.7-5.3) L 02/29/16 05:50 Globulin 3.3 gm/dL 02/29/16 05:50 Albumin/Globulin Ratio 0.9 (1.0-1.8) L 02/29/16 05:50 Urine Source CLEAN C 02/25/16 13:30 Urine Color YELLOW 02/25/16 13:30 Urine Clarity CLOUDY (CLEAR) H 02/25/16 13:30 Urine pH 7.0 02/25/16 13:30 Ur Specific [place] 1.015 (1.005-1.030) 02/25/16 13:30 Urine Protein 100 mg/dL (NEGATIVE) H 02/25/16 13:30 Urine Glucose (UA) NEGATIVE mg/dL (NEGATIVE) 02/25/16 13:30 Urine Ketones NEGATIVE mg/dL (NEGATIVE) 02/25/16 13:30 Urine Blood LARGE (NEGATIVE) H 02/25/16 13:30 Urine Nitrate NEGATIVE (NEGATIVE) 02/25/16 13:30 Urine Bilirubin NEGATIVE (NEGATIVE) 02/25/16 13:30 Urine Urobilinogen 0.2 E.U./dL (0.2 - 1.0) 02/25/16 13:30 Ur Leukocyte Esterase LARGE (NEGATIVE) H 02/25/16 13:30 Urine RBC >100 /hpf (0-5) H 02/25/16 13:30 Urine WBC >100 /hpf (0-5) H 02/25/16 13:30 Ur Epithelial Cells NONE SEEN /lpf (FEW) 02/25/16 13:30 Urine Bacteria MANY /hpf (NONE SEEN) 02/25/16 13:30 Vancomycin Trough 27.6 ug/mL (10-20) H 02/29/16 21:40 - Physical Exam Vitals and I&O: Vital Signs Temp 97.3 F 03/01/16 03:59 Pulse 72 03/01/16 03:59 Resp 18 03/01/16 03:59 BP 142/82 03/01/16 03:59 Pulse Ox 99 03/01/16 03:59 Intake & Output 02/29/16 03/01/16 03/01/16 18:59 06:59 18:59 Intake Total 1250 1050 Balance 1250 1050 Intake: Intake, IV Amount 1250 1000 Sodium Chloride 0.9% 1, 1000 1000 000 ml @ 75 mls/hr IV . [id number] EZRA Rx#:[id number] Vancomycin HCl 1 gm In 250 Sodium Chloride 0.9% 250 ml @ 165 mls/hr IV Q12H EZRA Rx#:[id number] Oral 50 Other: # Voids 2 # Bowel Movements 1 Stool Characteristics Soft Soft Active Medications: Current Medications Acetaminophen (Tylenol) 650 mg PO Q4HR PRN PRN Reason: Fever > 101 Stop: 04/26/16 11:20 Acetaminophen/Hydrocodone Bitart ([place] 5mg/325mg) 1 tab PO Q6H PRN PRN Reason: Pain (Moderate) Stop: 04/25/16 23:46 Last Admin: 02/29/16 14:16 Dose: 1 tab Acetaminophen/Hydrocodone Bitart ([place] 10 Mg/325 Mg) 1 tab PO Q4H PRN PRN Reason: Pain (Moderate) Stop: 04/26/16 11:20 Atenolol (Tenormin) 25 mg PO DAILY [facility] Stop: 04/26/16 11:29 Last Admin: 02/29/16 09:15 Dose: 25 mg Enoxaparin Sodium (Lovenox) 40 mg SUBQ DAILY [facility] Stop: 04/27/16 08:59 Last Admin: 02/29/16 09:17 Dose: 40 mg Ferrous Sulfate (Iron) 325 mg PO BID [facility] Stop: 04/26/16 16:59 Last Admin: 02/29/16 16:43 Dose: 325 mg Ceftriaxone Sodium 1 gm/ (Sodium Chloride) 50 mls @ 100 mls/hr IV Q24HR [facility] Stop: 04/26/16 17:59 Last Infusion: 02/27/16 09:33 Dose: Infused Sodium Chloride (Nacl 0.9%) 1,000 mls @ 75 mls/hr IV .[id number] [facility] Stop: 04/25/16 23:55 Last Admin: 03/01/16 06:48 Dose: 75 mls/hr Vancomycin HCl 1.25 gm/ Sodium (Chloride) 250 mls @ 165 mls/hr IV Q24H [facility] Stop: 04/30/16 08:59 Lorazepam (Ativan) 1 mg IVP Q8HR PRN; Protocol PRN Reason: Agitation Stop: 04/25/16 23:48 Last Admin: 02/26/16 20:48 Dose: 1 mg Lorazepam (Ativan) 0.5 mg PO Q6HR PRN; Protocol PRN Reason: Agitation Stop: 04/26/16 11:20 Last Admin: 02/26/16 12:35 Dose: 0.5 mg Miscellaneous (Vancomycin Iv Per Pharmacy) 1 ea MC PRN PRN PRN Reason: VANCOMYCIN DOSING Stop: 04/28/16 13:00 Ondansetron HCl (Zofran Odt) 8 mg PO Q8H PRN PRN Reason: NAUSEA Stop: 04/26/16 11:28 Oxycodone/Acetaminophen (Percocet 5/325mg Oral Tab) 1 tab PO Q4H PRN PRN Reason: Pain (Severe) Stop: 04/26/16 11:57 Last Admin: 02/27/16 08:32 Dose: 1 tab Sertraline HCl (Zoloft) 50 mg PO DAILY EZRA PRN Reason: Protocol Stop: 04/26/16 11:29 Last Admin: 02/29/16 09:15 Dose: 50 mg Temazepam (Restoril) 30 mg PO HS PRN PRN Reason: SLEEP Stop: 04/26/16 11:29 Last Admin: 02/29/16 21:18 Dose: 30 mg Zolpidem Tartrate (Ambien) 5 mg PO HS PRN PRN Reason: Insomnia Stop: 04/25/16 23:50 General: Alert, Oriented x3, Cooperative, No acute distress HEENT: Atraumatic Neck: Supple Cardiovascular: Regular rate Lungs: Clear to auscultation Abdomen: Bowel sounds, Soft Extremities: Other (No edema) Neurological: Normal gait Skin: Other (Redness in perianal area no pain or secretion) Psych/Mental Status: Mental status NL Assessment/Plan - Assessment Assessment: Patieny is awake, alert, calm, in no acute distress. Pain in anal area improving. CT shows perianal edema, no fistula. - Plan Plan: Patient will be discharge with PO doxycycline
[2016-03-01] MEDS: Ferrous Sulfate 325 MG TAB PO SCH (09:24)
[2016-03-01] MEDS: Enoxaparin 40 mg/0.4 mL 0.4mL Syr SUBQ SCH (09:25)
--- NOTE | 2016-03-09 20:37 | Discharge Summary ---
CHIEF COMPLAINT: Rectal pain. HISTORY OF PRESENT ILLNESS: This is the case of a 60-year-old white female who is a permanent resident of a [place] [facility]. longterm sent her to ER for evaluation and treatment secondary to rectal pain plus secretion from rectal area. The patient has past medical history of colon cancer and colostomy in place. The patient was sent to Med/Surg Room for evaluation and treatment. HOSPITAL COURSE AND TREATMENT: Then, this patient was hospitalized and she was started on vancomycin and ceftriaxone. Medications for pain control were given and she was continued on all the medications at the [place] [facility]. Consult with Oncology, Dr. Corona, was done and recommendations were followed. A CT scan of the rectal area was done in order to see if the secretion was secondary to a fistula. The CT scan shows no fistula. The patient was continued with this treatment and after 5 days in the hospital, it was considered that the patient received maximum benefit of hospitalization and she could be sent back to the [place] [facility] to continue treatment with Oncology and PCP. At the moment of the discharge, the patient was awake, alert, in no acute distress with no rectal pain. CONSULTANTS IN THIS CASE: Dr. Brown of Internal Medicine and Dr. Corona of Oncology. DISPOSITION: The patient was sent back to [place] [facility]. DIAGNOSES: 1. Sepsis. 2. Perirectal abscess with cellulitis. 3. Colon and rectal cancer. 4. Urinary tract infection. 5. Chronic anemia. 6. History of depression. JOB# [id number]
== END 2016-03-01 15:27 | DRG 872 ==
LOC: ER 14:14 → MSI 17:15
PROVIDERS: ADMIT General Practice; ATTEND General Practice
DX: A41.9 Sepsis, unspecified organism (principal); C20 Malignant neoplasm of rectum; I10 Essential (primary) hypertension; K61.1 Rectal abscess; D64.9 Anemia, unspecified; N39.0 Urinary tract infection, site not specified; F32.9 Major depressive disorder, single episode, unspecified; Z93.3 Colostomy status
CPT/HCPCS: 36415-UA; 71010-TC; 80048-TC; 80053-TC; 80202-TC; 81001-TC; 83735-TC; 84484-TC; 85025-TC; 85610-TC; 87086-90; 93005; J0696; J1650; J2060; J3370; J7030

== ENCOUNTER 2016-05-18 11:33 | Inpatient (IN) | payer MEDICAID ==
[2016-05-18] MEDS ORDERED: Sodium Chloride 0.9% 1,000 ML IV ONE (12:20)
[2016-05-18 12:30] LABS: % BASOPHILS 0.7 % (0.0-2.0); % EOSINOPHILS 0.8 % (0.0-5.0); % LYMPHOCYTES 5.2 % (20.0-50.0); % MONOCYTES 9.6 % (2.0-10.0); % NEUTROPHILS 83.7 % (40.0-80.0); HEMOGLOBIN 11.6 gm/dL (11.7-15.5); MEAN CELL VOLUME 80.4 fl (81-100); MEAN CORPUSCULAR HGB CONC 33.5 pg (28.0-36.0); MEAN PLATELET VOLUME 8.2 fl; NEUTROPHILE ABSOLUTE 7.8 Th/cmm (1.8-8.0); PLATELET COUNT 401 Th/cmm (150-400); RED CELL DISTRIBUTION WIDTH 15.1 % (11.5-20.0)
--- NOTE | 2016-05-18 12:32 | ED Physician Chart ---
Chief Complaint/HPI - Patient Information Date Seen:: 05/18/16 Time Seen:: 12:10 Chief Complaint:: painful lesion left buttocks History of Present Illness:: patient has had a painful lesion on left buttocks for the last one week. No chills or fever. Allergies:: Allergies Allergy/AdvReac Type Severity Reaction Status Date / Time iodine Allergy Verified 05/18/16 11:47 propoxyphene [From Darvon] Allergy Verified 05/18/16 11:47 Vitals:: Vital Signs - 8 hr 05/18/16 11:33 Temp 98.1 F HR 82 RR 16 BP 114/66 O2 Sat % 98 Historian:: Patient Review:: Nurse's Note Reviewed Review of Systems - Review of Systems General/Constitutional: No fever, No chills Skin: Skin lesions Head: No headache, No light-headedness Eyes: No loss of vision, No diplopia ENT: No earache, No sore throat Cardio Vascular: No chest pain, No palpitations Pulmonary: No SOB GI: No nausea, No vomiting G/U: No dysuria, No frequency Musculoskeletal: No bone or joint pain Endocrine: No polyuria Psychiatric: No prior psych history Allergic/Immuno: Urticaria, No urticaria Neurological: No syncope, No focal symptoms, No dizziness Past Medical History - Past Medical History Past Medical History: Other (rectal ca diagnosed 2 1/2 years ago) Family History: None Social History: Non Smoker Surgical History: other (colostomy) Psychiatricy History: None, Depression Medication: Reviewed Family Medical History - Family Member Father History Unknown: Yes Hx Family Cancer: Yes Hx Family Coronary Artery Disease: Yes Hx Family Hypertension: Yes Physical Exam - Physical Examination Other Gen/Cons comments:: thin; chronically ill appearing Head: Atraumatic Eyes: Lids, conjuctiva normal, PERRL Other Skin comments:: 4 cm in diameter about 2 cm raised left hemibuttocks abscess with about 15 cm of surrounding erythema ENMT: External ears, nose nl Neck: No nuchal rigidity Respiratory: Nl effort/Exclusion, Clear to Auscultation Cardio Vascular: No murmur, gallop, rubs GI: No tenderness/rebounding/guarding, No organomegaly Other GI comments:: colostomy bag : No CVA tenderness Extremities: Normal digits & nails Neuro/Psych: No focal deficits Misc: No paraspinal tenderness Labs/Radiology/EKG Results - Lab Results Comments:: Laboratory Results - last 24 hr 05/18/16 05/18/16 05/18/16 11:50 11:50 11:50 WBC 9.4 D RBC 4.30 Hgb 11.6 L Hct 34.6 L D MCV 80.4 L MCH 27.0 MCHC Differential 33.5 RDW 15.1 Plt Count 401 H MPV 8.2 Neutrophils % 83.7 H Lymphocytes % 5.2 L Monocytes % 9.6 Eosinophils % 0.8 Basophils % 0.7 PT 11.8 H INR 1.12 PTT (Actin FS) 27.9 Sodium 133 L Potassium 3.9 Chloride 100 Carbon Dioxide 27.7 Anion Gap 9.2 BUN 6 L Creatinine 0.6 Est GFR ( Amer) > 60.0 Est GFR (Non-Af Amer) > 60.0 BUN/Creatinine Ratio 10.0 Glucose 91 Calcium 9.4 ED Septic Shock - . Is Septic Shock (SBP<90, OR Lactate>4 mmol\L) present?: No - <6hrs of presentation: Vital Signs: Vital Signs - 8 hr 05/18/16 11:33 Temp 98.1 F HR 82 RR 16 BP 114/66 O2 Sat % 98 Reassessment (Disposition) - Reassessment Reassessment Condition:: Unchanged - Diagnosis Diagnosis:: abscess and cellulitis left neeta-buttocks - Patient Disposition Discharge/Transfer:: Home Admitted to:: Med/Surg Spoke to:: Abraham Colin Admitting Medical Physician:: Abraham Colin Condition at Disposition:: Stable, Unchanged
[2016-05-18 12:39] LABS: WHITE BLOOD COUNT 9.4 Th/cmm (4.8-10.8)
[2016-05-18 12:40] LABS: HEMATOCRIT 34.6 % (35.0-45.0)
[2016-05-18 12:47] LABS: INR 1.12 (0.5-1.4); PROTHROMBIN TIME (TEST) 11.8 SECONDS (9.5-11.5)
[2016-05-18 12:52] LABS: ANION GAP 9.2 (7.0-16.0); BUN - UREA NITROGEN 6 mg/dL (7-25); CALCIUM SERUM 9.4 mg/dL (8.6-10.3); CARBON DIOXIDE 27.7 mEq/L (21.0-31.0); CHLORIDE 100 mEq/L (98-107); CREATININE - SERUM 0.6 mg/dL (0.6-1.2); GLUCOSE 91 mg/dL (70-105); POTASSIUM SERUM 3.9 mEq/L (3.5-5.1); SODIUM SERUM 133 mEq/L (136-145)
[2016-05-18] MEDS ORDERED: APAP/Oxycodone 5/325mg Oral Tab PO STA (13:00)
[2016-05-18] MEDS ORDERED: APAP/Oxycodone 5/325mg Oral Tab ONE (13:05)
--- NOTE | 2016-05-18 19:00 | Admit Criteria Form ---
Admit Criteria Forms - Admit Criteria Diagnosis: CELLULITIS Clinical Indications for Admission to Inpatient Care (Place 'X' for any and all applicable criteria): Admission is indicated for ANY ONE of the following(1)(2)(3)(4)(5): [ ]I. Limb-threatening infection [ ]II. High-risk comorbid condition as indicated by ANY ONE of the following: [ ]a) Uncontrolled diabetes (eg, HbA1c greater than 10% (0.1)) [ ]b) Cirrhosis [ ]c) Neutropenia [ ]d) Asplenia [ ]e) Immunosuppression [ ]f) Symptomatic heart failure [ ]III. Failure of outpatient therapy as indicated by ALL of the following: [ ]a) Progression or no improvement after adequate trial (minimum of 48 hours, with longer period for stable lower extremity infection) [ ]b) Adequate antibiotic regimen as indicated by use of ANY ONE of the following: [ ]i) First-generation cephalosporin (e.g., cephalexin) [ ]ii) Antistaphylococcal penicillin (e.g., dicloxacillin) [ ]iii) Penicillin-allergic patient regimen (clindamycin, extended-spectrum fluoroquinolone, or doxycycline) [ ]iv) Resistant organism (eg, methicillin-resistant Staphylococcus aureus) regimen (6) [ ]c) Outpatient intravenous therapy regimen is not appropriate due to ANY ONE of the following. (7)(8)(9)(10): [ ]i) It was tried and was not successful (eg, progression of infection). [ ]ii) It is not available or cannot be arranged in a clinically appropriate time frame (e.g., the next day). [ ]iii) Clinical presentation (eg, acuity of infection, rapidity of progression, confirmed or suspected bacteremia) is judged to require ALL of the following: [ ]1) Immediate initiation of intravenous therapy ( eg, cannot wait for next day) [ ]2) Intensity of patient monitoring and observation (eg, vital sign measurement, checks for infection progression) that cannot be provided at other than inpatient level of care [ ]IV. Mental status changes [ ]V. Bacteremia [ ]. Hemodynamic instability [ ]VII. Suspected necrotizing soft tissue infection (e.g., gas in tissue)(11)( 12) [ ]VIII. Orbital infection (13)(14) [ ]IX. Associated surgical procedure (e.g., abscess drainage, debridement) not amenable to outpatient, emergency department, or observation care [ ]X. Cutaneous gangrene [ ]XI. High fever (temperature greater than 39.5 degrees C (103.1 degrees F) (oral)) not responsive to outpatient, emergency department, or observation care therapy [X]XIII. Inpatient admission required rather than observation care (Also use Cellulitis: Observation Care as appropriate) because of ANY ONE of the following : [ ]a) Periorbital or perineal infection that is severe or worsening [ ]b) Severe pain requiring acute inpatient management [ ]c) IV fluid to replace significant ongoing (e.g., for over 24 hours) losses (greater than 3L/m2 per day) [ ]d) Compartment syndrome monitoring (17) [ ]e) Strict or protective (eg, laminar flow) isolation [ ]f) Urgent debridement or skin grafting [ ]g) Bone or joint debridement [ ]h) Immediate inpatient surgery [X]i) Other condition, treatment or monitoring requiring inpatient admission Extended stay beyond goal length of stay may be needed for (1)(18): [ ]a) Necrotizing soft tissue infection or fasciitis [ ]b) Gram-negative infection [ ]c) Methicillin-resistant Staphylococcal aureus (MRSA) infection [ ]d) Peripheral venous insufficiency with cellulitis [ ]e) Extensive edema [ ]f) Sepsis or continued Hemodynamic instability [ ]g) Continued high fever or mental status change [ ]h) Bacteremia [ ]i) Active serious comorbid conditions ( eg, heart failure, renal insufficiency) The original [facility] [employer] content created by [email or web address] has been revised. The portions of the content which have been revised are identified through the use of italic text or in bold, and [facility] has neither reviewed nor approved the modified material. All other unmodified content is copyright [facility] Please see references footnoted in the original [facility] edition 2016 Admit Criteria Met?: Yes
[2016-05-19 00:05] VITALS: BP 100/62
[2016-05-19] MEDS ORDERED: Piperacillin Sodium/Tazobact 3.375 gm Vial IV ONE (01:37)
[2016-05-19 06:08] LABS: % BASOPHILS 0.1 % (0.0-2.0); % EOSINOPHILS 1.4 % (0.0-5.0); % LYMPHOCYTES 9.1 % (20.0-50.0); % MONOCYTES 10.5 % (2.0-10.0); % NEUTROPHILS 78.9 % (40.0-80.0); HEMOGLOBIN 10.1 gm/dL (11.7-15.5); MEAN CELL VOLUME 81.3 fl (81-100); MEAN CORPUSCULAR HEMOGLOBIN 26.7 pg (27.0-31.0); MEAN CORPUSCULAR HGB CONC 32.8 pg (28.0-36.0); MEAN PLATELET VOLUME 8.1 fl; NEUTROPHILE ABSOLUTE 5.6 Th/cmm (1.8-8.0); PLATELET COUNT 393 Th/cmm (150-400); RED BLOOD COUNT 3.77 Mil/cmm (3.80-5.10); RED CELL DISTRIBUTION WIDTH 15.3 % (11.5-20.0)
[2016-05-19 06:19] LABS: HEMATOCRIT 30.7 % (35.0-45.0); WHITE BLOOD COUNT 7.2 Th/cmm (4.8-10.8)
[2016-05-19 06:21] LABS: ALKALINE PHOSPHATASE 87 U/L (34-104); ANION GAP 10.2 (7.0-16.0); BILIRUBIN,TOTAL 0.4 mg/dL (0.3-1.0); BUN - UREA NITROGEN 5 mg/dL (7-25); CARBON DIOXIDE 25.6 mEq/L (21.0-31.0); CHLORIDE 103 mEq/L (98-107); CREATININE - SERUM 0.5 mg/dL (0.6-1.2); GLUCOSE 67 mg/dL (70-105); POTASSIUM SERUM 3.8 mEq/L (3.5-5.1); SGOT 9 U/L (13-39); SGPT/ALT 5 U/L (7-52); SODIUM SERUM 135 mEq/L (136-145)
--- NOTE | 2016-05-19 08:52 | General Progress Note ---
Subjective - Review of Systems Service Date: 05/19/16 Subjective: I have pain Objective - Results Result Diagrams: 05/19/16 05:27 05/19/16 05:27 Recent Labs: Laboratory Last Values WBC 7.2 Th/cmm (4.8-10.8) D 05/19/16 05:27 RBC 3.77 Mil/cmm (3.80-5.10) L 05/19/16 05:27 Hgb 10.1 gm/dL (11.7-15.5) L 05/19/16 05:27 Hct 30.7 % (35.0-45.0) L D 05/19/16 05:27 MCV 81.3 fl (81-100) 05/19/16 05:27 MCH 26.7 pg (27.0-31.0) L 05/19/16 05:27 MCHC Differential 32.8 pg (28.0-36.0) 05/19/16 05:27 RDW 15.3 % (11.5-20.0) 05/19/16 05:27 Plt Count 393 Th/cmm (150-400) 05/19/16 05:27 MPV 8.1 fl 05/19/16 05:27 Neutrophils % 78.9 % (40.0-80.0) 05/19/16 05:27 Lymphocytes % 9.1 % (20.0-50.0) L 05/19/16 05:27 Monocytes % 10.5 % (2.0-10.0) H 05/19/16 05:27 Eosinophils % 1.4 % (0.0-5.0) 05/19/16 05:27 Basophils % 0.1 % (0.0-2.0) 05/19/16 05:27 PT 11.8 SECONDS (9.5-11.5) H 05/18/16 11:50 INR 1.12 (0.5-1.4) 05/18/16 11:50 PTT (Actin FS) 27.9 SECONDS (26.0-38.0) 05/18/16 11:50 Sodium 135 mEq/L (136-145) L 05/19/16 05:27 Potassium 3.8 mEq/L (3.5-5.1) 05/19/16 05:27 Chloride 103 mEq/L (98-107) 05/19/16 05:27 Carbon Dioxide 25.6 mEq/L (21.0-31.0) 05/19/16 05:27 Anion Gap 10.2 (7.0-16.0) 05/19/16 05:27 BUN 5 mg/dL (7-25) L 05/19/16 05:27 Creatinine 0.5 mg/dL (0.6-1.2) L 05/19/16 05:27 Est GFR ( Amer) > 60.0 ml/min (>90) 05/19/16 05:27 Est GFR (Non-Af Amer) > 60.0 ml/min 05/19/16 05:27 BUN/Creatinine Ratio 10.0 05/19/16 05:27 Glucose 67 mg/dL (70-105) L 05/19/16 05:27 Calcium 9.0 mg/dL (8.6-10.3) 05/19/16 05:27 Total Bilirubin 0.4 mg/dL (0.3-1.0) 05/19/16 05:27 AST 9 U/L (13-39) L 05/19/16 05:27 ALT 5 U/L (7-52) L 05/19/16 05:27 Alkaline Phosphatase 87 U/L (34-104) 05/19/16 05:27 Total Protein 6.1 gm/dL (6.0-8.3) 05/19/16 05:27 Albumin 3.0 gm/dL (3.7-5.3) L 05/19/16 05:27 Globulin 3.1 gm/dL 05/19/16 05:27 Albumin/Globulin Ratio 1.0 (1.0-1.8) 05/19/16 05:27 - Physical Exam Vitals and I&O: Vital Signs Temp 98.0 F 05/18/16 20:00 Pulse 79 05/18/16 20:00 Resp 18 05/19/16 00:00 BP 100/62 05/19/16 00:05 Pulse Ox 95 05/18/16 20:00 Intake & Output 05/18/16 05/19/16 05/19/16 18:59 06:59 18:59 Intake Total 200 Balance 200 Weight (lbs) 49.895 kg Intake: Oral 200 Other: # Voids 1 # Bowel Movements 0 Active Medications: Current Medications Acetaminophen (Tylenol) 650 mg PO Q4HR PRN PRN Reason: fever >100 or mild pain Stop: 07/17/16 23:22 Atenolol (Tenormin) 25 mg PO DAILY [facility] Stop: 07/18/16 08:59 Ferrous Sulfate (Iron) 325 mg PO TID [facility] Stop: 07/18/16 08:59 Hydromorphone HCl (Dilaudid) 1 mg IVP Q6HR PRN PRN Reason: Pain (Severe) Stop: 07/17/16 23:27 Piperacillin Sod/Tazobactam (Sod 3.375 gm/ Sodium Chloride) 50 mls @ 100 mls/ hr IV Q6HR [facility] Stop: 07/18/16 00:00 Last Admin: 05/19/16 02:11 Dose: 100 mls/hr Vancomycin HCl 1 gm/ Sodium (Chloride) 250 mls @ 165 mls/hr IV Q12H [facility] Stop: 07/18/16 08:59 Lorazepam (Ativan) 0.5 mg PO Q6HR PRN; Protocol PRN Reason: Anxiety Stop: 07/17/16 23:22 Miscellaneous (Vancomycin Iv Per Pharmacy) 1 ea MC DAILY [facility] Stop: 07/18/16 08:59 Ondansetron HCl (Zofran Odt) 8 mg PO Q8H PRN PRN Reason: Nausea / Vomiting Stop: 07/17/16 23:29 Oxycodone/Acetaminophen (Percocet 5/325mg Oral Tab) 1 tab PO Q6H PRN PRN Reason: FOR PAIN Stop: 07/17/16 22:33 Sertraline HCl (Zoloft) 50 mg PO DAILY [facility] PRN Reason: Protocol Stop: 07/18/16 08:59 Temazepam (Restoril) 30 mg PO HS PRN; Protocol PRN Reason: Insomnia Stop: 07/17/16 22:28 Last Admin: 05/18/16 22:47 Dose: 30 mg General: Alert, Oriented x3, Cooperative, Mild distress HEENT: Atraumatic Neck: Supple Cardiovascular: Regular rate Lungs: Clear to auscultation Abdomen: Bowel sounds, Soft, Other (Colostomy in place) Neurological: Normal gait Skin: Other (There is redness in perianal area with abcess that is bleeding) Psych/Mental Status: Mental status NL Assessment/Plan - Problem List Patient Problems: All Active Problems OPEN LESION INNER BUTTOCK (Acute ~05/18/16) - Assessment Assessment: Patient is awake in distress secondary to pain. Dx: Anal abcess and cellulitis, Rectal Ca. HTN, Depresion, colostomy in place. - Plan Plan: Surgeon already saw patient, debridament will be done today
[2016-05-19] MEDS: Ferrous Sulfate 325 MG TAB PO SCH ×3 (09:20→21:35)
[2016-05-19] MEDS ORDERED: fentaNYL Citrate 100 mcg/2mL Vial ONE (09:39)
[2016-05-19] MEDS ORDERED: Midazolam 1mg/ml 2 ml vial IV ONE (09:39)
[2016-05-19] MEDS: APAP/Oxycodone 5/325mg Oral Tab PO PRN (11:04)
--- NOTE | 2016-05-19 11:12 | History & Physical ---
CHIEF COMPLAINT: Rectal cellulitis and abscess. HISTORY OF PRESENT ILLNESS: This is the case of a 61-year-old white female who has history a rectal cancer. The patient is on chemotherapy treatment. She has a colostomy and she referred that 3 weeks ago started to develop an abscess. This is the third time the abscess has developed in the anal area. The patient was sent to Emergency Room for evaluation and treatment. PAST MEDICAL HISTORY: The patient has past medical history of rectal cancer, on chemotherapy, hypertension, depression and colostomy in place. SOCIAL HISTORY: The patient is a permanent resident of a alf. FAMILY HISTORY: Noncontributory. MEDICATIONS: Reviewed. PAST SURGICAL HISTORY: Colostomy. REVIEW OF SYSTEMS: LUNGS: The patient denies shortness of breath. HEART: The patient denies chest pain. ABDOMEN: Unremarkable. EXTREMITIES: Unremarkable. GENITOURINARY: Anal area, the patient refers bleeding and oozing from the mass in the anal area. PHYSICAL EXAMINATION: GENERAL: Does reveal a fairly nourished and developed white female, awake, alert and complaining of pain. HEENT: Head is normocephalic and atraumatic. Eyes: Pupils reactive to light. Nose: No evidence of nasal obstruction. Ears: No evidence of any discharge. Mouth: Fairly ____. The patient's ____. The patient shows low weight. LUNGS: Bilateral air entry. No wheezing, no crackles. HEART: Regular rate and rhythm. ABDOMEN: Soft, nontender. Bowel sound is present. Colostomy in place. EXTREMITIES: Full movement of all extremities. No edema. GENITOURINARY: In anal area, there is an abscess and cellulitis. There is abscess around 5 cm and cellulitis fold in the anal area. There is bleeding. IMPRESSION: 1. Abscess and cellulitis. 2. Rectal cancer. 3. Hypertension. 4. Depression. 5. Colostomy in place. PLAN: 1. The patient will be admitted in the medical/surgical floor. 2. IV normal saline. 3. Vancomycin and Zosyn IV. 4. Consult with Dr. Cagle, surgeon. 5. Consult with Dr. Edwar Rosado, ID. 6. Regular diet. 7. CBC, CMP at a.m. JOB# [id number]
[2016-05-19] MEDS: HYDROmorphone 1 mg/mL 1mL Syr IVP PRN (16:50)
[2016-05-20] MEDS: APAP/Oxycodone 5/325mg Oral Tab PO PRN (03:59)
[2016-05-20 05:43] LABS: % BASOPHILS 0.8 % (0.0-2.0); % EOSINOPHILS 3.5 % (0.0-5.0); % LYMPHOCYTES 9.8 % (20.0-50.0); % MONOCYTES 13.8 % (2.0-10.0); % NEUTROPHILS 72.1 % (40.0-80.0); HEMATOCRIT 29.8 % (35.0-45.0); MEAN CELL VOLUME 81.8 fl (81-100); MEAN CORPUSCULAR HEMOGLOBIN 27.4 pg (27.0-31.0); MEAN CORPUSCULAR HGB CONC 33.5 pg (28.0-36.0); MEAN PLATELET VOLUME 7.6 fl; NEUTROPHILE ABSOLUTE 3.6 Th/cmm (1.8-8.0); PLATELET COUNT 407 Th/cmm (150-400); RED BLOOD COUNT 3.65 Mil/cmm (3.80-5.10); RED CELL DISTRIBUTION WIDTH 15.4 % (11.5-20.0)
[2016-05-20 06:16] LABS: ALB/GLOB RATIO 0.9 (1.0-1.8); ALKALINE PHOSPHATASE 72 U/L (34-104); ANION GAP 4.9 (7.0-16.0); BILIRUBIN,TOTAL 0.2 mg/dL (0.3-1.0); BUN - UREA NITROGEN 5 mg/dL (7-25); BUN/CREATININE RATIO 8.3; CALCIUM SERUM 8.7 mg/dL (8.6-10.3); CARBON DIOXIDE 29.9 mEq/L (21.0-31.0); CHLORIDE 106 mEq/L (98-107); CREATININE - SERUM 0.6 mg/dL (0.6-1.2); GLUCOSE 103 mg/dL (70-105); POTASSIUM SERUM 3.8 mEq/L (3.5-5.1); SGOT 8 U/L (13-39); SGPT/ALT 3 U/L (7-52); SODIUM SERUM 137 mEq/L (136-145)
--- NOTE | 2016-05-20 07:07 | Consultation ---
INFECTIOUS DISEASE CONSULTATION REFERRING PHYSICIAN: Dr. Colin. REASON FOR CONSULTATION: Gluteal abscess. HISTORY OF PRESENT ILLNESS: The patient is a 61-year-old female with a past medical history of rectal cancer, status post colostomy, on chemotherapy by Dr. Ybarra; hypertension; depression; developed abscess in the left gluteal region, so she came to the ER for further evaluation. I and D was performed by Dr. Cagle, and the patient was put on vancomycin and Zosyn. ID consult was called for further antibiotic management. PAST MEDICAL HISTORY: Rectal cancer, on chemotherapy, status post colostomy; hypertension; depression. SOCIAL HISTORY: The patient lives at nursing facility. No history of smoking, alcohol, or drug use. FAMILY HISTORY: Noncontributory. MEDICATIONS: As per medication reconciliation sheet, antibiotic villagomez, the patient is on vancomycin and Zosyn. PAST SURGICAL HISTORY: Colostomy. REVIEW OF SYSTEMS: GENERAL: The patient denies any fever or chills. HEENT: No diplopia. No photophobia. No sore throat. RESPIRATORY: No cough. No shortness of breath. CVS: No chest pain or palpitation. GI: No nausea. No vomiting. No diarrhea. No constipation. GENITOURINARY: No dysuria. NEUROLOGIC: No headache. No dizziness. No focal weakness. SKIN: The patient has left gluteal area with I and D wound and wound VAC. PHYSICAL EXAMINATION: VITAL SIGNS: Current vital signs show temperature was 98.6 degrees Fahrenheit, pulse 81, respirations are 18, blood pressure 160/92. GENERAL: The patient is comfortable lying in the bed, not in acute distress, cachectic. HEENT: Head is normocephalic, atraumatic. Oral cavity moist. [place] tongue. Eyes: Pallor is present. No icterus. Pupils PERRLA. EOMI. NECK: Supple. No JVD. No carotid bruit. Trachea in midline. CHEST: Bilateral breath sounds. No crackles. No wheezing. HEART: S1, S2 within normal limits. Regular rhythm. No murmur. No gallop. ABDOMEN: Soft, nontender, nondistended. Bowel sounds present. Colostomy site is okay. EXTREMITIES: No cyanosis. No clubbing. No edema. SKIN: The patient has left gluteal area with a wound VAC. LABORATORY DATA: Current lab shows WBC count is 7200, hemoglobin 10.1, hematocrit 30.7, platelets are 393,000, neutrophils 79%. Sodium 135, potassium 3.8, chloride 103, bicarbonate is 25.6, BUN is 5, creatinine is 0.5, glucose is 67. LFTs reviewed. Blood culture 2 sets are negative. MRSA screen is positive and wound culture is pending. IMPRESSION: 1. Right gluteal abscess. 2. Rectal cancer with colostomy, on chemotherapy. 3. Cachexia with protein-calorie malnutrition. 4. Hypertension. 5. Status post incision and drainage, postoperative day # 0. 6. Depression. RECOMMENDATIONS: I agree with vancomycin and Zosyn. Depending on the wound culture report, we will define antibiotic therapy for 10-12 days. Thank you, Dr. Colin, for involving me in taking care of this patient. JOB# [id number] MTDD
--- NOTE | 2016-05-20 09:41 | General Progress Note ---
Subjective - Review of Systems Service Date: 05/20/16 Events since last encounter: ulcer to wound vac patient has chemo-radiation after colostomy (rectal cancer not resected) 2-3 years ago at [facility] has mediport - on chemo per Dr. 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 Objective - Results Result Diagrams: 05/20/16 05:30 05/20/16 05:30 Recent Labs: Laboratory Last Values WBC 5.0 Th/cmm (4.8-10.8) D 05/20/16 05:30 RBC 3.65 Mil/cmm (3.80-5.10) L 05/20/16 05:30 Hgb 10.0 gm/dL (11.7-15.5) L 05/20/16 05:30 Hct 29.8 % (35.0-45.0) L 05/20/16 05:30 MCV 81.8 fl (81-100) 05/20/16 05:30 MCH 27.4 pg (27.0-31.0) 05/20/16 05:30 MCHC Differential 33.5 pg (28.0-36.0) 05/20/16 05:30 RDW 15.4 % (11.5-20.0) 05/20/16 05:30 Plt Count 407 Th/cmm (150-400) H 05/20/16 05:30 MPV 7.6 fl 05/20/16 05:30 Neutrophils % 72.1 % (40.0-80.0) 05/20/16 05:30 Lymphocytes % 9.8 % (20.0-50.0) L 05/20/16 05:30 Monocytes % 13.8 % (2.0-10.0) H 05/20/16 05:30 Eosinophils % 3.5 % (0.0-5.0) 05/20/16 05:30 Basophils % 0.8 % (0.0-2.0) 05/20/16 05:30 PT 11.8 SECONDS (9.5-11.5) H 05/18/16 11:50 INR 1.12 (0.5-1.4) 05/18/16 11:50 PTT (Actin FS) 27.9 SECONDS (26.0-38.0) 05/18/16 11:50 Sodium 137 mEq/L (136-145) 05/20/16 05:30 Potassium 3.8 mEq/L (3.5-5.1) 05/20/16 05:30 Chloride 106 mEq/L (98-107) 05/20/16 05:30 Carbon Dioxide 29.9 mEq/L (21.0-31.0) 05/20/16 05:30 Anion Gap 4.9 (7.0-16.0) L 05/20/16 05:30 BUN 5 mg/dL (7-25) L 05/20/16 05:30 Creatinine 0.6 mg/dL (0.6-1.2) 05/20/16 05:30 Est GFR ( Amer) > 60.0 ml/min (>90) 05/20/16 05:30 Est GFR (Non-Af Amer) > 60.0 ml/min 05/20/16 05:30 BUN/Creatinine Ratio 8.3 05/20/16 05:30 Glucose 103 mg/dL (70-105) 05/20/16 05:30 Calcium 8.7 mg/dL (8.6-10.3) 05/20/16 05:30 Total Bilirubin 0.2 mg/dL (0.3-1.0) L 05/20/16 05:30 AST 8 U/L (13-39) L 05/20/16 05:30 ALT 3 U/L (7-52) L 05/20/16 05:30 Alkaline Phosphatase 72 U/L (34-104) 05/20/16 05:30 Total Protein 5.8 gm/dL (6.0-8.3) L 05/20/16 05:30 Albumin 2.8 gm/dL (3.7-5.3) L 05/20/16 05:30 Globulin 3.0 gm/dL 05/20/16 05:30 Albumin/Globulin Ratio 0.9 (1.0-1.8) L 05/20/16 05:30 - Physical Exam Vitals and I&O: Vital Signs Temp 98.2 F 05/20/16 04:00 Pulse 86 05/20/16 04:00 Resp 16 05/20/16 04:00 BP 108/85 05/20/16 04:00 Pulse Ox 97 05/20/16 04:00 Intake & Output 05/19/16 05/20/16 05/20/16 18:59 06:59 18:59 Intake Total 950 390 Output Total 70 Balance 950 320 Intake: Intake, IV Amount 400 50 Piperacillin Sodium/ 150 50 Tazobact 3.375 gm In Sodium Chloride 0.9% 50 ml @ 100 mls/hr IV Q6HR [facility] Rx#:[id number] Vancomycin HCl 1 gm In 250 Sodium Chloride 0.9% 250 ml @ 165 mls/hr IV Q12H [facility] Rx#:[id number] Oral 550 340 Output: Drainage 70 LT BUTTOCKS 70 Other: # Voids 3 2 # Bowel Movements 0 Active Medications: Current Medications Acetaminophen (Tylenol) 650 mg PO Q4HR PRN PRN Reason: fever >100 or mild pain Stop: 07/17/16 23:22 Atenolol (Tenormin) 25 mg PO DAILY [facility] Stop: 07/18/16 08:59 Last Admin: 05/19/16 09:20 Dose: Not Given Ferrous Sulfate (Iron) 325 mg PO TID [facility] Stop: 07/18/16 08:59 Last Admin: 05/19/16 21:35 Dose: 325 mg Hydromorphone HCl (Dilaudid) 1 mg IVP Q6HR PRN PRN Reason: Pain (Severe) Stop: 07/17/16 23:27 Last Admin: 05/19/16 16:50 Dose: 1 mg Piperacillin Sod/Tazobactam (Sod 3.375 gm/ Sodium Chloride) 50 mls @ 100 mls/ hr IV Q6HR [facility] Stop: 07/18/16 00:00 Last Admin: 05/20/16 06:40 Dose: 100 mls/hr Vancomycin HCl 1 gm/ Sodium (Chloride) 250 mls @ 165 mls/hr IV Q12H [facility] Stop: 07/18/16 08:59 Last Admin: 05/19/16 21:35 Dose: 165 mls/hr Lorazepam (Ativan) 0.5 mg PO Q6HR PRN; Protocol PRN Reason: Anxiety Stop: 07/17/16 23:22 Miscellaneous (Vancomycin Iv Per Pharmacy) 1 ea MC DAILY [facility] Stop: 07/18/16 08:59 Ondansetron HCl (Zofran Odt) 8 mg PO Q8H PRN PRN Reason: Nausea / Vomiting Stop: 07/17/16 23:29 Oxycodone/Acetaminophen (Percocet 5/325mg Oral Tab) 1 tab PO Q6H PRN PRN Reason: FOR PAIN Stop: 07/17/16 22:33 Last Admin: 05/20/16 03:59 Dose: 1 tab Sertraline HCl (Zoloft) 50 mg PO DAILY [facility] PRN Reason: Protocol Stop: 07/18/16 08:59 Last Admin: 05/19/16 09:21 Dose: Not Given Temazepam (Restoril) 30 mg PO HS PRN; Protocol PRN Reason: Insomnia Stop: 07/17/16 22:28 Last Admin: 05/19/16 21:35 Dose: 30 mg Assessment/Plan - Problem List Patient Problems: All Active Problems OPEN LESION INNER BUTTOCK (Acute ~05/18/16) Nutritional Asmnt/Malnutr-PDOC - Dietary Evaluation Malnutrition Findings (Please click <Entered> for more info): Nutritional Asmnt/Malnutrition Start: 05/19/16 11: 06 Text: Status: Complete Freq: Document 05/19/16 11:06 GSUN (Rec: 05/19/16 11:12 [id number]) Nutritional Asmnt/Malnutrition Patient General Information Nutritional Screening Consult Diagnosis Abscess and cellulitis Pertinent Medical Hx/Surgical Hx Rectal cancer on chemotherapy, HTN, depression, colostomy in place Subjective Information 61 year old female from SNF. RD consult for cellulitis of left buttock. Progress note: debridement scheduled for today. Pt was away to OR during visit. Spoke to RN, pt NPO this AM. Current Diet Order/ Nutrition Support Regular Pertinent Medications Iron, Dilaudid, Vancomycin, Zofran Pertinent Labs Reviewed. Nutritional Hx/Data Height 1.65 m Height (Calculated Centimeters) 165.1 Current Weight (lbs) 49.895 kg Weight (Calculated Kilograms) 49.9 Weight (Calculated Grams) 08147.2 Candia Body Weight 125 Weight Status Underweight GI Symptoms Food Allergies No Skin Integrity/Comment: Percy 15. Wound care: left buttock abscess Estimated Nutritional Goals Calories/Kcals/Kg IBW 125lb/56.8kg Kcals Calculated 1704-1988kcal (30-35kcal/kg) Protein Calculated 80-91g (1.4-1.6g/kg) Fluid: ml 1704-1988ml (1ml/kcal) Nutritional Problem 1. Problem Problem Increased prot and kcal needs related to Etiology hypermatabolic state, underweight aeb Signs/Symptoms: rectal cancer undergoing chemotherapy, risk of malnutrition, BMI 18.3, wound healing Intervention/Recommendation Comments 1. Resume regular diet. Monitor PO intake, pt is udnerweight with risk of weight loss/malnutrition related to cancer on chemotherapy. 2. 1 packet prosource for additional protein for wound healing and cancer. Expected Outcomes/Goals Expected Outcomes/Goals 1. Pt to meet at least 100% of estimated nutritional needs.
[2016-05-20] MEDS: Ferrous Sulfate 325 MG TAB PO SCH ×3 (10:33→21:17)
[2016-05-20] MEDS: HYDROmorphone 1 mg/mL 1mL Syr IVP PRN ×2 (10:37→16:55)
--- NOTE | 2016-05-20 13:32 | Consultation ---
REFERRING PHYSICIAN: Dr. Colin. REASON FOR CONSULTATION: Left buttocks abscess. Thank you for referring this patient to me. HISTORY OF PRESENT ILLNESS: This is a 61-year-old female with a 2-week history of increasing drainage from ulcer and abscess in the left buttocks. PAST MEDICAL HISTORY: The patient claims that she had rectal carcinoma, which was resected and underwent a diverting colostomy instead. This was couple years ago. Other treatment after this is unclear. She has also history of hypertension and depression. LABORATORY STUDIES: Show the WBC to be normal, hemoglobin 11.6. Chemistries are essentially normal. The chest is unremarkable. PHYSICAL EXAMINATION: The patient appears to be alert and awake and seems to give any meaningful information. There is a colostomy in place. On the left buttock, there is an ulcer with surrounding cellulitis, which is extremely tender and could not be examined. We will need to take this patient to the OR to debride and determine the extent and depth of the ulcer. Informed consent discussed with the patient, will sign the consent. JOB# [id number]
--- NOTE | 2016-05-20 13:54 | Operative Report ---
PREOPERATIVE DIAGNOSES: 1. Left buttocks ulcer. 2. Carcinoma of the rectum, post-diverting colostomy. 3. Depression. 4. Hypertension. POSTOPERATIVE DIAGNOSIS: Abscess extending into the pelvis, depth of approximately 15 cm. This was probed with the finger and with suction. SURGEON: Tsering Cervantes M.D. ANESTHESIA: IV sedation. ANESTHESIOLOGIST: Tosin Isabel M.D. OPERATION DONE: Application of wound VAC. DESCRIPTION OF PROCEDURE: The patient was given IV sedation. She was then placed in the right lateral decubitus position. The left buttocks was prepped with Betadine and draped. A finger was used to probe the depth of the ulcer, which went all the way down to the pelvis. The bone is palpated. Necrotic tissues ____ the ulcer. Mass is not palpable at the finger tips, however. Following cultures, the wound was packed with a silver sponge and connected to wound VAC. The patient tolerated the procedure well. [facility]# [id number]
--- NOTE | 2016-05-20 15:58 | General Progress Note ---
Subjective - Review of Systems Service Date: 05/20/16 Subjective: I have less pain Objective - Results Result Diagrams: 05/20/16 05:30 05/20/16 05:30 Recent Labs: Laboratory Last Values WBC 5.0 Th/cmm (4.8-10.8) D 05/20/16 05:30 RBC 3.65 Mil/cmm (3.80-5.10) L 05/20/16 05:30 Hgb 10.0 gm/dL (11.7-15.5) L 05/20/16 05:30 Hct 29.8 % (35.0-45.0) L 05/20/16 05:30 MCV 81.8 fl (81-100) 05/20/16 05:30 MCH 27.4 pg (27.0-31.0) 05/20/16 05:30 MCHC Differential 33.5 pg (28.0-36.0) 05/20/16 05:30 RDW 15.4 % (11.5-20.0) 05/20/16 05:30 Plt Count 407 Th/cmm (150-400) H 05/20/16 05:30 MPV 7.6 fl 05/20/16 05:30 Neutrophils % 72.1 % (40.0-80.0) 05/20/16 05:30 Lymphocytes % 9.8 % (20.0-50.0) L 05/20/16 05:30 Monocytes % 13.8 % (2.0-10.0) H 05/20/16 05:30 Eosinophils % 3.5 % (0.0-5.0) 05/20/16 05:30 Basophils % 0.8 % (0.0-2.0) 05/20/16 05:30 PT 11.8 SECONDS (9.5-11.5) H 05/18/16 11:50 INR 1.12 (0.5-1.4) 05/18/16 11:50 PTT (Actin FS) 27.9 SECONDS (26.0-38.0) 05/18/16 11:50 Sodium 137 mEq/L (136-145) 05/20/16 05:30 Potassium 3.8 mEq/L (3.5-5.1) 05/20/16 05:30 Chloride 106 mEq/L (98-107) 05/20/16 05:30 Carbon Dioxide 29.9 mEq/L (21.0-31.0) 05/20/16 05:30 Anion Gap 4.9 (7.0-16.0) L 05/20/16 05:30 BUN 5 mg/dL (7-25) L 05/20/16 05:30 Creatinine 0.6 mg/dL (0.6-1.2) 05/20/16 05:30 Est GFR ( Amer) > 60.0 ml/min (>90) 05/20/16 05:30 Est GFR (Non-Af Amer) > 60.0 ml/min 05/20/16 05:30 BUN/Creatinine Ratio 8.3 05/20/16 05:30 Glucose 103 mg/dL (70-105) 05/20/16 05:30 Calcium 8.7 mg/dL (8.6-10.3) 05/20/16 05:30 Total Bilirubin 0.2 mg/dL (0.3-1.0) L 05/20/16 05:30 AST 8 U/L (13-39) L 05/20/16 05:30 ALT 3 U/L (7-52) L 05/20/16 05:30 Alkaline Phosphatase 72 U/L (34-104) 05/20/16 05:30 Total Protein 5.8 gm/dL (6.0-8.3) L 05/20/16 05:30 Albumin 2.8 gm/dL (3.7-5.3) L 05/20/16 05:30 Globulin 3.0 gm/dL 05/20/16 05:30 Albumin/Globulin Ratio 0.9 (1.0-1.8) L 05/20/16 05:30 - Physical Exam Vitals and I&O: Vital Signs Temp 96.9 F 05/20/16 08:00 Pulse 76 05/20/16 10:33 Resp 17 05/20/16 08:00 BP 110/76 05/20/16 10:33 Pulse Ox 99 05/20/16 08:00 Intake & Output 05/19/16 05/20/16 05/20/16 18:59 06:59 18:59 Intake Total 950 640 50 Output Total 70 70 Balance 950 570 -20 Intake: Intake, IV Amount 400 300 50 Piperacillin Sodium/ 150 50 50 Tazobact 3.375 gm In Sodium Chloride 0.9% 50 ml @ 100 mls/hr IV Q6HR [facility] Rx#:[id number] Vancomycin HCl 1 gm In 250 250 Sodium Chloride 0.9% 250 ml @ 165 mls/hr IV Q12H [facility] Rx#:[id number] Oral 550 340 Output: Drainage 70 70 LT BUTTOCKS 70 70 Other: # Voids 3 2 # Bowel Movements 0 Active Medications: Current Medications Acetaminophen (Tylenol) 650 mg PO Q4HR PRN PRN Reason: fever >100 or mild pain Stop: 07/17/16 23:22 Atenolol (Tenormin) 25 mg PO DAILY [facility] Stop: 07/18/16 08:59 Last Admin: 05/20/16 10:33 Dose: 25 mg Ferrous Sulfate (Iron) 325 mg PO TID [facility] Stop: 07/18/16 08:59 Last Admin: 05/20/16 14:26 Dose: 325 mg Hydromorphone HCl (Dilaudid) 1 mg IVP Q6HR PRN PRN Reason: Pain (Severe) Stop: 07/17/16 23:27 Last Admin: 05/20/16 10:37 Dose: 1 mg Piperacillin Sod/Tazobactam (Sod 3.375 gm/ Sodium Chloride) 50 mls @ 100 mls/ hr IV Q6HR [facility] Stop: 07/18/16 00:00 Last Admin: 05/20/16 13:00 Dose: 100 mls/hr Vancomycin HCl 1 gm/ Sodium (Chloride) 250 mls @ 165 mls/hr IV Q12H [facility] Stop: 07/18/16 08:59 Last Admin: 05/20/16 10:32 Dose: 165 mls/hr Lorazepam (Ativan) 0.5 mg PO Q6HR PRN; Protocol PRN Reason: Anxiety Stop: 07/17/16 23:22 Miscellaneous (Vancomycin Iv Per Pharmacy) 1 ea MC DAILY [facility] Stop: 07/18/16 08:59 Ondansetron HCl (Zofran Odt) 8 mg PO Q8H PRN PRN Reason: Nausea / Vomiting Stop: 07/17/16 23:29 Oxycodone/Acetaminophen (Percocet 5/325mg Oral Tab) 1 tab PO Q6H PRN PRN Reason: FOR PAIN Stop: 06/05/17 22:33 Last Admin: 05/20/16 03:59 Dose: 1 tab Sertraline HCl (Zoloft) 50 mg PO DAILY [facility] PRN Reason: Protocol Stop: 07/18/16 08:59 Last Admin: 05/20/16 10:33 Dose: 50 mg Temazepam (Restoril) 30 mg PO HS PRN; Protocol PRN Reason: Insomnia Stop: 07/17/16 22:28 Last Admin: 05/19/16 21:35 Dose: 30 mg General: Alert, Oriented x3, Cooperative, No acute distress HEENT: Atraumatic Neck: Supple Cardiovascular: Regular rate Lungs: Clear to auscultation Abdomen: Bowel sounds, Soft Neurological: Normal gait Skin: Other (There is a vacumm in rectal abcess) Psych/Mental Status: Mental status NL Assessment/Plan - Problem List Patient Problems: All Active Problems OPEN LESION INNER BUTTOCK (Acute ~05/18/16) - Assessment Assessment: Patient is awake in no distress. Dx: Anal abcess and cellulitis, Rectal Ca. HTN , Depresion, colostomy in place. - Plan Plan: MRI is requested, debridament done. Will continue with AB and wound care. Nutritional Asmnt/Malnutr-PDOC - Dietary Evaluation Malnutrition Findings (Please click <Entered> for more info): Nutritional Asmnt/Malnutrition Start: 05/19/16 11: 06 Text: Status: Complete Freq: Document 05/19/16 11:06 GSUN (Rec: 05/19/16 11:12 [email or web address]) Nutritional Asmnt/Malnutrition Patient General Information Nutritional Screening Consult Diagnosis Abscess and cellulitis Pertinent Medical Hx/Surgical Hx Rectal cancer on chemotherapy, HTN, depression, colostomy in place Subjective Information 61 year old female from SNF. RD consult for cellulitis of left buttock. Progress note: debridement scheduled for today. Pt was away to OR during visit. Spoke to RN, pt NPO this AM. Current Diet Order/ Nutrition Support Regular Pertinent Medications Iron, Dilaudid, Vancomycin, Zofran Pertinent Labs Reviewed. Nutritional Hx/Data Height 1.65 m Height (Calculated Centimeters) 165.1 Current Weight (lbs) 49.895 kg Weight (Calculated Kilograms) 49.9 Weight (Calculated Grams) 56494.2 [place] Body Weight 125 Weight Status Underweight GI Symptoms Food Allergies No Skin Integrity/Comment: Percy 15. Wound care: left buttock abscess Estimated Nutritional Goals Calories/Kcals/Kg IBW 125lb/56.8kg Kcals Calculated 1704-1988kcal (30-35kcal/kg) Protein Calculated 80-91g (1.4-1.6g/kg) Fluid: ml 1704-1988ml (1ml/kcal) Nutritional Problem 1. Problem Problem Increased prot and kcal needs related to Etiology hypermatabolic state, underweight aeb Signs/Symptoms: rectal cancer undergoing chemotherapy, risk of malnutrition, BMI 18.3, wound healing Intervention/Recommendation Comments 1. Resume regular diet. Monitor PO intake, pt is udnerweight with risk of weight loss/malnutrition related to cancer on chemotherapy. 2. 1 packet prosource for additional protein for wound healing and cancer. Expected Outcomes/Goals Expected Outcomes/Goals 1. Pt to meet at least 100% of estimated nutritional needs.
--- NOTE | 2016-05-20 21:00 | Infectious Disease Prog Note ---
Infectious Disease Subjective - Review of Systems Service Date: 05/20/16 Subjective: There is no fever, no chills. Infectious Disease Objective - Results Result Diagrams: 05/20/16 05:30 05/20/16 05:30 Recent Labs: Laboratory Last Values WBC 5.0 Th/cmm (4.8-10.8) D 05/20/16 05:30 RBC 3.65 Mil/cmm (3.80-5.10) L 05/20/16 05:30 Hgb 10.0 gm/dL (11.7-15.5) L 05/20/16 05:30 Hct 29.8 % (35.0-45.0) L 05/20/16 05:30 MCV 81.8 fl (81-100) 05/20/16 05:30 MCH 27.4 pg (27.0-31.0) 05/20/16 05:30 MCHC Differential 33.5 pg (28.0-36.0) 05/20/16 05:30 RDW 15.4 % (11.5-20.0) 05/20/16 05:30 Plt Count 407 Th/cmm (150-400) H 05/20/16 05:30 MPV 7.6 fl 05/20/16 05:30 Neutrophils % 72.1 % (40.0-80.0) 05/20/16 05:30 Lymphocytes % 9.8 % (20.0-50.0) L 05/20/16 05:30 Monocytes % 13.8 % (2.0-10.0) H 05/20/16 05:30 Eosinophils % 3.5 % (0.0-5.0) 05/20/16 05:30 Basophils % 0.8 % (0.0-2.0) 05/20/16 05:30 PT 11.8 SECONDS (9.5-11.5) H 05/18/16 11:50 INR 1.12 (0.5-1.4) 05/18/16 11:50 PTT (Actin FS) 27.9 SECONDS (26.0-38.0) 05/18/16 11:50 Sodium 137 mEq/L (136-145) 05/20/16 05:30 Potassium 3.8 mEq/L (3.5-5.1) 05/20/16 05:30 Chloride 106 mEq/L (98-107) 05/20/16 05:30 Carbon Dioxide 29.9 mEq/L (21.0-31.0) 05/20/16 05:30 Anion Gap 4.9 (7.0-16.0) L 05/20/16 05:30 BUN 5 mg/dL (7-25) L 05/20/16 05:30 Creatinine 0.6 mg/dL (0.6-1.2) 05/20/16 05:30 Est GFR ( Amer) > 60.0 ml/min (>90) 05/20/16 05:30 Est GFR (Non-Af Amer) > 60.0 ml/min 05/20/16 05:30 BUN/Creatinine Ratio 8.3 05/20/16 05:30 Glucose 103 mg/dL (70-105) 05/20/16 05:30 Calcium 8.7 mg/dL (8.6-10.3) 05/20/16 05:30 Total Bilirubin 0.2 mg/dL (0.3-1.0) L 05/20/16 05:30 AST 8 U/L (13-39) L 05/20/16 05:30 ALT 3 U/L (7-52) L 05/20/16 05:30 Alkaline Phosphatase 72 U/L (34-104) 05/20/16 05:30 Total Protein 5.8 gm/dL (6.0-8.3) L 05/20/16 05:30 Albumin 2.8 gm/dL (3.7-5.3) L 05/20/16 05:30 Globulin 3.0 gm/dL 05/20/16 05:30 Albumin/Globulin Ratio 0.9 (1.0-1.8) L 05/20/16 05:30 Vancomycin Trough 19.9 ug/mL (10-20) 05/20/16 20:01 - Physical Exam Vitals and I&O: Vital Signs Temp 98.1 F 05/20/16 16:00 Pulse 80 05/20/16 16:00 Resp 18 05/20/16 16:00 BP 129/78 05/20/16 16:00 Pulse Ox 97 05/20/16 16:00 Intake & Output 05/20/16 05/20/16 05/21/16 06:59 18:59 06:59 Intake Total 640 50 500 Output Total 70 70 Balance 570 -20 500 Intake: Intake, IV Amount 300 50 Piperacillin Sodium/ 50 50 Tazobact 3.375 gm In Sodium Chloride 0.9% 50 ml @ 100 mls/hr IV Q6HR [facility] Rx#:[id number] Vancomycin HCl 1 gm In 250 Sodium Chloride 0.9% 250 ml @ 165 mls/hr IV Q12H [facility] Rx#:[id number] Oral 340 500 Output: Drainage 70 70 LT BUTTOCKS 70 70 Other: # Voids 2 2 # Bowel Movements 0 1 Active Medications: Current Medications Acetaminophen (Tylenol) 650 mg PO Q4HR PRN PRN Reason: fever >100 or mild pain Stop: 07/17/16 23:22 Atenolol (Tenormin) 25 mg PO DAILY [facility] Stop: 07/18/16 08:59 Last Admin: 05/20/16 10:33 Dose: 25 mg Ferrous Sulfate (Iron) 325 mg PO TID [facility] Stop: 07/18/16 08:59 Last Admin: 05/20/16 14:26 Dose: 325 mg Hydromorphone HCl (Dilaudid) 1 mg IVP Q6HR PRN PRN Reason: Pain (Severe) Stop: 07/17/16 23:27 Last Admin: 05/20/16 16:55 Dose: 1 mg Piperacillin Sod/Tazobactam (Sod 3.375 gm/ Sodium Chloride) 50 mls @ 100 mls/ hr IV Q6HR [facility] Stop: 07/18/16 00:00 Last Admin: 05/20/16 13:00 Dose: 100 mls/hr Vancomycin HCl 1 gm/ Sodium (Chloride) 250 mls @ 165 mls/hr IV Q12H [facility] Stop: 07/18/16 08:59 Last Admin: 05/20/16 10:32 Dose: 165 mls/hr Lorazepam (Ativan) 0.5 mg PO Q6HR PRN; Protocol PRN Reason: Anxiety Stop: 07/17/16 23:22 Miscellaneous (Vancomycin Iv Per Pharmacy) 1 ea MC DAILY [facility] Stop: 07/18/16 08:59 Ondansetron HCl (Zofran Odt) 8 mg PO Q8H PRN PRN Reason: Nausea / Vomiting Stop: 07/17/16 23:29 Oxycodone/Acetaminophen (Percocet 5/325mg Oral Tab) 1 tab PO Q6H PRN PRN Reason: FOR PAIN Stop: 07/17/16 22:33 Last Admin: 05/20/16 03:59 Dose: 1 tab Sertraline HCl (Zoloft) 50 mg PO DAILY [facility] PRN Reason: Protocol Stop: 07/18/16 08:59 Last Admin: 05/20/16 10:33 Dose: 50 mg Temazepam (Restoril) 30 mg PO HS PRN; Protocol PRN Reason: Insomnia Stop: 07/17/16 22:28 Last Admin: 05/19/16 21:35 Dose: 30 mg General: no acute distress, well developed, well nourished HEENT: atraumatic, normocephalic, PERRLA, EOMI Neck: supple, no thyromegaly, no lymphadenopathy Cardiovascular: S1S2, regular Lungs: clear to auscultation bilaterally, clear to percussion Abdomen: soft, no tender, no distended Extremities: no cyanosis, no clubbing, no edema Neurological: awake, alert, oriented Skin: other (Right glultal area, aound vac.) Infectious Disease Assmt/Plan - Problem List Patient Problems: All Active Problems OPEN LESION INNER BUTTOCK (Acute ~05/18/16) - Assessment Assessment: Impression: 1. Right gluleal abscess. 2. Rectal CA s/p colectomy, on chemotherapy by Dr Corona. 3. HTN. 4. Prtotein calorie malnutrition. - Plan Plan: Continue same treatment. Nutritional Asmnt/Malnutr-PDOC - Dietary Evaluation Malnutrition Findings (Please click <Entered> for more info): Nutritional Asmnt/Malnutrition Start: 05/19/16 11: 06 Text: Status: Complete Freq: Document 05/19/16 11:06 GSUN (Rec: 05/19/16 11:12 [email or web address]) Nutritional Asmnt/Malnutrition Patient General Information Nutritional Screening Consult Diagnosis Abscess and cellulitis Pertinent Medical Hx/Surgical Hx Rectal cancer on chemotherapy, HTN, depression, colostomy in place Subjective Information 61 year old female from SNF. RD consult for cellulitis of left buttock. Progress note: debridement scheduled for today. Pt was away to OR during visit. Spoke to RN, pt NPO this AM. Current Diet Order/ Nutrition Support Regular Pertinent Medications Iron, Dilaudid, Vancomycin, Zofran Pertinent Labs Reviewed. Nutritional Hx/Data Height 1.65 m Height (Calculated Centimeters) 165.1 Current Weight (lbs) 49.895 kg Weight (Calculated Kilograms) 49.9 Weight (Calculated Grams) 25144.2 [place] Body Weight 125 Weight Status Underweight GI Symptoms Food Allergies No Skin Integrity/Comment: Percy 15. Wound care: left buttock abscess Estimated Nutritional Goals Calories/Kcals/Kg IBW 125lb/56.8kg Kcals Calculated 1704-1988kcal (30-35kcal/kg) Protein Calculated 80-91g (1.4-1.6g/kg) Fluid: ml 1704-1988ml (1ml/kcal) Nutritional Problem 1. Problem Problem Increased prot and kcal needs related to Etiology hypermatabolic state, underweight aeb Signs/Symptoms: rectal cancer undergoing chemotherapy, risk of malnutrition, BMI 18.3, wound healing Intervention/Recommendation Comments 1. Resume regular diet. Monitor PO intake, pt is udnerweight with risk of weight loss/malnutrition related to cancer on chemotherapy. 2. 1 packet prosource for additional protein for wound healing and cancer. Expected Outcomes/Goals Expected Outcomes/Goals 1. Pt to meet at least 100% of estimated nutritional needs.
[2016-05-21] MEDS: HYDROmorphone 1 mg/mL 1mL Syr IVP PRN ×3 (00:18→16:20)
[2016-05-21 07:44] LABS: HEMATOCRIT 30.4 % (35.0-45.0); HEMOGLOBIN 10.3 gm/dL (11.7-15.5); MEAN CORPUSCULAR HEMOGLOBIN 27.4 pg (27.0-31.0); MEAN CORPUSCULAR HGB CONC 33.9 pg (28.0-36.0); MEAN PLATELET VOLUME 7.7 fl; PLATELET COUNT 409 Th/cmm (150-400); RED BLOOD COUNT 3.75 Mil/cmm (3.80-5.10); RED CELL DISTRIBUTION WIDTH 15.2 % (11.5-20.0); WHITE BLOOD COUNT 4.1 Th/cmm (4.8-10.8)
[2016-05-21 08:13] LABS: ALKALINE PHOSPHATASE 65 U/L (34-104); ANION GAP 7.5 (7.0-16.0); BILIRUBIN,TOTAL 0.2 mg/dL (0.3-1.0); BUN - UREA NITROGEN 3 mg/dL (7-25); BUN/CREATININE RATIO 4.3; CALCIUM SERUM 8.9 mg/dL (8.6-10.3); CARBON DIOXIDE 31.4 mEq/L (21.0-31.0); CHLORIDE 108 mEq/L (98-107); CREATININE - SERUM 0.7 mg/dL (0.6-1.2); GLUCOSE 91 mg/dL (70-105); POTASSIUM SERUM 3.9 mEq/L (3.5-5.1); SGOT 9 U/L (13-39); SGPT/ALT 3 U/L (7-52); SODIUM SERUM 143 mEq/L (136-145)
[2016-05-21 08:56] LABS: BAND NEUTROPHILE 2 % (0-10); EOSINOPHIL 6 % (0-5); NEUTROPHILS 60 % (40-80); PLATELET ESTIMATE ADEQUATE (NORMAL); TOTAL CELLS COUNTED 100
--- NOTE | 2016-05-21 09:00 | General Progress Note ---
Subjective - Review of Systems Service Date: 05/21/16 Events since last encounter: wound vac in place MRI pelvis ordered for tomorrow Objective - Results Result Diagrams: 05/21/16 06:51 05/21/16 06:51 Recent Labs: Laboratory Last Values WBC 4.1 Th/cmm (4.8-10.8) L 05/21/16 06:51 RBC 3.75 Mil/cmm (3.80-5.10) L 05/21/16 06:51 Hgb 10.3 gm/dL (11.7-15.5) L 05/21/16 06:51 Hct 30.4 % (35.0-45.0) L 05/21/16 06:51 MCV 81.0 fl (81-100) 05/21/16 06:51 MCH 27.4 pg (27.0-31.0) 05/21/16 06:51 MCHC Differential 33.9 pg (28.0-36.0) 05/21/16 06:51 RDW 15.2 % (11.5-20.0) 05/21/16 06:51 Plt Count 409 Th/cmm (150-400) H 05/21/16 06:51 MPV 7.7 fl 05/21/16 06:51 Neutrophils % 72.1 % (40.0-80.0) 05/20/16 05:30 Band Neutrophils % 2 % (0-10) 05/21/16 06:51 Lymphocytes % 9.8 % (20.0-50.0) L 05/20/16 05:30 Monocytes % 13.8 % (2.0-10.0) H 05/20/16 05:30 Eosinophils % 3.5 % (0.0-5.0) 05/20/16 05:30 Basophils % 0.8 % (0.0-2.0) 05/20/16 05:30 Neutrophils (Manual) 60 % (40-80) 05/21/16 06:51 Lymphocytes 22 % (20-50) 05/21/16 06:51 Monocytes 10 % (2-10) 05/21/16 06:51 Eosinophils 6 % (0-5) H 05/21/16 06:51 Platelet Estimate ADEQUATE (NORMAL) 05/21/16 06:51 PT 11.8 SECONDS (9.5-11.5) H 05/18/16 11:50 INR 1.12 (0.5-1.4) 05/18/16 11:50 PTT (Actin FS) 27.9 SECONDS (26.0-38.0) 05/18/16 11:50 Sodium 143 mEq/L (136-145) 05/21/16 06:51 Potassium 3.9 mEq/L (3.5-5.1) 05/21/16 06:51 Chloride 108 mEq/L (98-107) H 05/21/16 06:51 Carbon Dioxide 31.4 mEq/L (21.0-31.0) H 05/21/16 06:51 Anion Gap 7.5 (7.0-16.0) 05/21/16 06:51 BUN 3 mg/dL (7-25) L 05/21/16 06:51 Creatinine 0.7 mg/dL (0.6-1.2) 05/21/16 06:51 Est GFR ( Amer) > 60.0 ml/min (>90) 05/21/16 06:51 Est GFR (Non-Af Amer) > 60.0 ml/min 05/21/16 06:51 BUN/Creatinine Ratio 4.3 05/21/16 06:51 Glucose 91 mg/dL (70-105) 05/21/16 06:51 Calcium 8.9 mg/dL (8.6-10.3) 05/21/16 06:51 Total Bilirubin 0.2 mg/dL (0.3-1.0) L 05/21/16 06:51 AST 9 U/L (13-39) L 05/21/16 06:51 ALT 3 U/L (7-52) L 05/21/16 06:51 Alkaline Phosphatase 65 U/L (34-104) 05/21/16 06:51 Total Protein 5.7 gm/dL (6.0-8.3) L 05/21/16 06:51 Albumin 2.8 gm/dL (3.7-5.3) L 05/21/16 06:51 Globulin 2.9 gm/dL 05/21/16 06:51 Albumin/Globulin Ratio 1.0 (1.0-1.8) 05/21/16 06:51 Vancomycin Trough 19.9 ug/mL (10-20) 05/20/16 20:01 - Physical Exam Vitals and I&O: Vital Signs Temp 97 F 05/21/16 04:00 Pulse 77 05/21/16 04:00 Resp 20 05/21/16 04:00 BP 127/76 05/21/16 04:00 Pulse Ox 98 05/21/16 04:00 Intake & Output 05/20/16 05/21/16 05/21/16 18:59 06:59 18:59 Intake Total 350 700 Output Total 70 300 Balance 280 400 Intake: Intake, IV Amount 350 100 Piperacillin Sodium/ 100 100 Tazobact 3.375 gm In Sodium Chloride 0.9% 50 ml @ 100 mls/hr IV Q6HR [facility] Rx#:[id number] Vancomycin HCl 1 gm In 250 Sodium Chloride 0.9% 250 ml @ 165 mls/hr IV Q12H [facility] Rx#:[id number] Oral 600 Output: Drainage 70 300 LT BUTTOCKS 70 300 Other: # Voids 2 # Bowel Movements 1 Active Medications: Current Medications Acetaminophen (Tylenol) 650 mg PO Q4HR PRN PRN Reason: fever >100 or mild pain Stop: 07/17/16 23:22 Atenolol (Tenormin) 25 mg PO DAILY [facility] Stop: 07/18/16 08:59 Last Admin: 05/20/16 10:33 Dose: 25 mg Ferrous Sulfate (Iron) 325 mg PO TID [facility] Stop: 07/18/16 08:59 Last Admin: 05/20/16 21:17 Dose: 325 mg Hydromorphone HCl (Dilaudid) 1 mg IVP Q6HR PRN PRN Reason: Pain (Severe) Stop: 07/17/16 23:27 Last Admin: 05/21/16 00:18 Dose: 1 mg Piperacillin Sod/Tazobactam (Sod 3.375 gm/ Sodium Chloride) 50 mls @ 100 mls/ hr IV Q6HR [facility] Stop: 07/18/16 00:00 Last Admin: 05/21/16 06:05 Dose: 100 mls/hr Vancomycin HCl 0.75 gm/ Sodium (Chloride) 250 mls @ 165 mls/hr IV Q12HR@0900, 2100 [facility] Stop: 07/20/16 08:59 Lorazepam (Ativan) 0.5 mg PO Q6HR PRN; Protocol PRN Reason: Anxiety Stop: 07/17/16 23:22 Miscellaneous (Vancomycin Iv Per Pharmacy) 1 ea MC DAILY [facility] Stop: 07/18/16 08:59 Ondansetron HCl (Zofran Odt) 8 mg PO Q8H PRN PRN Reason: Nausea / Vomiting Stop: 07/17/16 23:29 Oxycodone/Acetaminophen (Percocet 5/325mg Oral Tab) 1 tab PO Q6H PRN PRN Reason: FOR PAIN Stop: 07/17/16 22:33 Last Admin: 05/20/16 03:59 Dose: 1 tab Sertraline HCl (Zoloft) 50 mg PO DAILY [facility] PRN Reason: Protocol Stop: 07/18/16 08:59 Last Admin: 05/20/16 10:33 Dose: 50 mg Temazepam (Restoril) 30 mg PO HS PRN; Protocol PRN Reason: Insomnia Stop: 07/17/16 22:28 Last Admin: 05/20/16 22:07 Dose: 30 mg Assessment/Plan - Problem List Patient Problems: All Active Problems OPEN LESION INNER BUTTOCK (Acute ~05/18/16) Nutritional Asmnt/Malnutr-PDOC - Dietary Evaluation Malnutrition Findings (Please click <Entered> for more info): Nutritional Asmnt/Malnutrition Start: 05/19/16 11: 06 Text: Status: Complete Freq: Document 05/19/16 11:06 GSUN (Rec: 05/19/16 11:12 [email or web address]) Nutritional Asmnt/Malnutrition Patient General Information Nutritional Screening Consult Diagnosis Abscess and cellulitis Pertinent Medical Hx/Surgical Hx Rectal cancer on chemotherapy, HTN, depression, colostomy in place Subjective Information 61 year old female from SNF. RD consult for cellulitis of left buttock. Progress note: debridement scheduled for today. Pt was away to OR during visit. Spoke to RN, pt NPO this AM. Current Diet Order/ Nutrition Support Regular Pertinent Medications Iron, Dilaudid, Vancomycin, Zofran Pertinent Labs Reviewed. Nutritional Hx/Data Height 1.65 m Height (Calculated Centimeters) 165.1 Current Weight (lbs) 49.895 kg Weight (Calculated Kilograms) 49.9 Weight (Calculated Grams) 15228.2 [place] Body Weight 125 Weight Status Underweight GI Symptoms Food Allergies No Skin Integrity/Comment: Percy 15. Wound care: left buttock abscess Estimated Nutritional Goals Calories/Kcals/Kg IBW 125lb/56.8kg Kcals Calculated 1704-1988kcal (30-35kcal/kg) Protein Calculated 80-91g (1.4-1.6g/kg) Fluid: ml 1704-1988ml (1ml/kcal) Nutritional Problem 1. Problem Problem Increased prot and kcal needs related to Etiology hypermatabolic state, underweight aeb Signs/Symptoms: rectal cancer undergoing chemotherapy, risk of malnutrition, BMI 18.3, wound healing Intervention/Recommendation Comments 1. Resume regular diet. Monitor PO intake, pt is udnerweight with risk of weight loss/malnutrition related to cancer on chemotherapy. 2. 1 packet prosource for additional protein for wound healing and cancer. Expected Outcomes/Goals Expected Outcomes/Goals 1. Pt to meet at least 100% of estimated nutritional needs.
[2016-05-21] MEDS: Ferrous Sulfate 325 MG TAB PO SCH ×3 (09:25→21:26)
--- NOTE | 2016-05-21 09:46 | General Progress Note ---
Subjective - Review of Systems Service Date: 05/21/16 Subjective: I am better Objective - Results Result Diagrams: 05/21/16 06:51 05/21/16 06:51 Recent Labs: Laboratory Last Values WBC 4.1 Th/cmm (4.8-10.8) L 05/21/16 06:51 RBC 3.75 Mil/cmm (3.80-5.10) L 05/21/16 06:51 Hgb 10.3 gm/dL (11.7-15.5) L 05/21/16 06:51 Hct 30.4 % (35.0-45.0) L 05/21/16 06:51 MCV 81.0 fl (81-100) 05/21/16 06:51 MCH 27.4 pg (27.0-31.0) 05/21/16 06:51 MCHC Differential 33.9 pg (28.0-36.0) 05/21/16 06:51 RDW 15.2 % (11.5-20.0) 05/21/16 06:51 Plt Count 409 Th/cmm (150-400) H 05/21/16 06:51 MPV 7.7 fl 05/21/16 06:51 Neutrophils % 72.1 % (40.0-80.0) 05/20/16 05:30 Band Neutrophils % 2 % (0-10) 05/21/16 06:51 Lymphocytes % 9.8 % (20.0-50.0) L 05/20/16 05:30 Monocytes % 13.8 % (2.0-10.0) H 05/20/16 05:30 Eosinophils % 3.5 % (0.0-5.0) 05/20/16 05:30 Basophils % 0.8 % (0.0-2.0) 05/20/16 05:30 Neutrophils (Manual) 60 % (40-80) 05/21/16 06:51 Lymphocytes 22 % (20-50) 05/21/16 06:51 Monocytes 10 % (2-10) 05/21/16 06:51 Eosinophils 6 % (0-5) H 05/21/16 06:51 Platelet Estimate ADEQUATE (NORMAL) 05/21/16 06:51 PT 11.8 SECONDS (9.5-11.5) H 05/18/16 11:50 INR 1.12 (0.5-1.4) 05/18/16 11:50 PTT (Actin FS) 27.9 SECONDS (26.0-38.0) 05/18/16 11:50 Sodium 143 mEq/L (136-145) 05/21/16 06:51 Potassium 3.9 mEq/L (3.5-5.1) 05/21/16 06:51 Chloride 108 mEq/L (98-107) H 05/21/16 06:51 Carbon Dioxide 31.4 mEq/L (21.0-31.0) H 05/21/16 06:51 Anion Gap 7.5 (7.0-16.0) 05/21/16 06:51 BUN 3 mg/dL (7-25) L 05/21/16 06:51 Creatinine 0.7 mg/dL (0.6-1.2) 05/21/16 06:51 Est GFR ( Amer) > 60.0 ml/min (>90) 05/21/16 06:51 Est GFR (Non-Af Amer) > 60.0 ml/min 05/21/16 06:51 BUN/Creatinine Ratio 4.3 05/21/16 06:51 Glucose 91 mg/dL (70-105) 05/21/16 06:51 Calcium 8.9 mg/dL (8.6-10.3) 05/21/16 06:51 Total Bilirubin 0.2 mg/dL (0.3-1.0) L 05/21/16 06:51 AST 9 U/L (13-39) L 05/21/16 06:51 ALT 3 U/L (7-52) L 05/21/16 06:51 Alkaline Phosphatase 65 U/L (34-104) 05/21/16 06:51 Total Protein 5.7 gm/dL (6.0-8.3) L 05/21/16 06:51 Albumin 2.8 gm/dL (3.7-5.3) L 05/21/16 06:51 Globulin 2.9 gm/dL 05/21/16 06:51 Albumin/Globulin Ratio 1.0 (1.0-1.8) 05/21/16 06:51 Vancomycin Trough 19.9 ug/mL (10-20) 05/20/16 20:01 - Physical Exam Vitals and I&O: Vital Signs Temp 97 F 05/21/16 04:00 Pulse 76 05/21/16 09:25 Resp 20 05/21/16 04:00 BP 145/92 05/21/16 09:25 Pulse Ox 98 05/21/16 04:00 Intake & Output 05/20/16 05/21/16 05/21/16 18:59 06:59 18:59 Intake Total 350 700 Output Total 70 300 Balance 280 400 Intake: Intake, IV Amount 350 100 Piperacillin Sodium/ 100 100 Tazobact 3.375 gm In Sodium Chloride 0.9% 50 ml @ 100 mls/hr IV Q6HR [facility] Rx#:[id number] Vancomycin HCl 1 gm In 250 Sodium Chloride 0.9% 250 ml @ 165 mls/hr IV Q12H [facility] Rx#:[id number] Oral 600 Output: Drainage 70 300 LT BUTTOCKS 70 300 Other: # Voids 2 # Bowel Movements 1 Active Medications: Current Medications Acetaminophen (Tylenol) 650 mg PO Q4HR PRN PRN Reason: fever >100 or mild pain Stop: 07/17/16 23:22 Atenolol (Tenormin) 25 mg PO DAILY [facility] Stop: 07/18/16 08:59 Last Admin: 05/21/16 09:25 Dose: 25 mg Ferrous Sulfate (Iron) 325 mg PO TID [facility] Stop: 07/18/16 08:59 Last Admin: 05/21/16 09:25 Dose: 325 mg Hydromorphone HCl (Dilaudid) 1 mg IVP Q6HR PRN PRN Reason: Pain (Severe) Stop: 07/17/16 23:27 Last Admin: 05/21/16 09:28 Dose: 1 mg Piperacillin Sod/Tazobactam (Sod 3.375 gm/ Sodium Chloride) 50 mls @ 100 mls/ hr IV Q6HR [facility] Stop: 07/18/16 00:00 Last Admin: 05/21/16 06:05 Dose: 100 mls/hr Vancomycin HCl 0.75 gm/ Sodium (Chloride) 250 mls @ 165 mls/hr IV Q12HR@0900, 2100 [facility] Stop: 07/20/16 08:59 Last Admin: 05/21/16 09:28 Dose: 165 mls/hr Lorazepam (Ativan) 0.5 mg PO Q6HR PRN; Protocol PRN Reason: Anxiety Stop: 07/17/16 23:22 Miscellaneous (Vancomycin Iv Per Pharmacy) 1 ea [facility] DAILY [facility] Stop: 07/18/16 08:59 Ondansetron HCl (Zofran Odt) 8 mg PO Q8H PRN PRN Reason: Nausea / Vomiting Stop: 07/17/16 23:29 Oxycodone/Acetaminophen (Percocet 5/325mg Oral Tab) 1 tab PO Q6H PRN PRN Reason: FOR PAIN Stop: 07/17/16 22:33 Last Admin: 05/20/16 03:59 Dose: 1 tab Sertraline HCl (Zoloft) 50 mg PO DAILY [facility] PRN Reason: Protocol Stop: 07/18/16 08:59 Last Admin: 05/21/16 09:24 Dose: 50 mg Temazepam (Restoril) 30 mg PO HS PRN; Protocol PRN Reason: Insomnia Stop: 07/17/16 22:28 Last Admin: 05/20/16 22:07 Dose: 30 mg General: Alert, Oriented x3, Cooperative, No acute distress HEENT: Atraumatic Neck: Supple Cardiovascular: Regular rate Lungs: Clear to auscultation Abdomen: Bowel sounds, Soft Extremities: Other (No edema) Neurological: Other (Non ambulatory at this moment) Skin: Other (Wound packed at anal area) Psych/Mental Status: Mental status NL Assessment/Plan - Problem List Patient Problems: All Active Problems OPEN LESION INNER BUTTOCK (Acute ~05/18/16) - Assessment Assessment: Patient is awake in no distress. Dx: Anal abcess and cellulitis, Rectal Ca. HTN , Depresion, colostomy in place. - Plan Plan: MRI will be done tomorrow. Will continue with AB and wound care. Nutritional Asmnt/Malnutr-PDOC - Dietary Evaluation Malnutrition Findings (Please click <Entered> for more info): Nutritional Asmnt/Malnutrition Start: 05/19/16 11: 06 Text: Status: Complete Freq: Document 05/19/16 11:06 GSUN (Rec: 05/19/16 11:12 [email or web address]) Nutritional Asmnt/Malnutrition Patient General Information Nutritional Screening Consult Diagnosis Abscess and cellulitis Pertinent Medical Hx/Surgical Hx Rectal cancer on chemotherapy, HTN, depression, colostomy in place Subjective Information 61 year old female from SNF. RD consult for cellulitis of left buttock. Progress note: debridement scheduled for today. Pt was away to OR during visit. Spoke to RN, pt NPO this AM. Current Diet Order/ Nutrition Support Regular Pertinent Medications Iron, Dilaudid, Vancomycin, Zofran Pertinent Labs Reviewed. Nutritional Hx/Data Height 1.65 m Height (Calculated Centimeters) 165.1 Current Weight (lbs) 49.895 kg Weight (Calculated Kilograms) 49.9 Weight (Calculated Grams) 99914.2 [place] Body Weight 125 Weight Status Underweight GI Symptoms Food Allergies No Skin Integrity/Comment: Percy 15. Wound care: left buttock abscess Estimated Nutritional Goals Calories/Kcals/Kg IBW 125lb/56.8kg Kcals Calculated 1704-1988kcal (30-35kcal/kg) Protein Calculated 80-91g (1.4-1.6g/kg) Fluid: ml 1704-1988ml (1ml/kcal) Nutritional Problem 1. Problem Problem Increased prot and kcal needs related to Etiology hypermatabolic state, underweight aeb Signs/Symptoms: rectal cancer undergoing chemotherapy, risk of malnutrition, BMI 18.3, wound healing Intervention/Recommendation Comments 1. Resume regular diet. Monitor PO intake, pt is udnerweight with risk of weight loss/malnutrition related to cancer on chemotherapy. 2. 1 packet prosource for additional protein for wound healing and cancer. Expected Outcomes/Goals Expected Outcomes/Goals 1. Pt to meet at least 100% of estimated nutritional needs.
--- NOTE | 2016-05-21 15:08 | Infectious Disease Prog Note ---
Infectious Disease Subjective - Review of Systems Service Date: 05/21/16 Subjective: There is no fever, no chills. Infectious Disease Objective - Results Result Diagrams: 05/21/16 06:51 05/21/16 06:51 Recent Labs: Laboratory Last Values WBC 4.1 Th/cmm (4.8-10.8) L 05/21/16 06:51 RBC 3.75 Mil/cmm (3.80-5.10) L 05/21/16 06:51 Hgb 10.3 gm/dL (11.7-15.5) L 05/21/16 06:51 Hct 30.4 % (35.0-45.0) L 05/21/16 06:51 MCV 81.0 fl (81-100) 05/21/16 06:51 MCH 27.4 pg (27.0-31.0) 05/21/16 06:51 MCHC Differential 33.9 pg (28.0-36.0) 05/21/16 06:51 RDW 15.2 % (11.5-20.0) 05/21/16 06:51 Plt Count 409 Th/cmm (150-400) H 05/21/16 06:51 MPV 7.7 fl 05/21/16 06:51 Neutrophils % 72.1 % (40.0-80.0) 05/20/16 05:30 Band Neutrophils % 2 % (0-10) 05/21/16 06:51 Lymphocytes % 9.8 % (20.0-50.0) L 05/20/16 05:30 Monocytes % 13.8 % (2.0-10.0) H 05/20/16 05:30 Eosinophils % 3.5 % (0.0-5.0) 05/20/16 05:30 Basophils % 0.8 % (0.0-2.0) 05/20/16 05:30 Neutrophils (Manual) 60 % (40-80) 05/21/16 06:51 Lymphocytes 22 % (20-50) 05/21/16 06:51 Monocytes 10 % (2-10) 05/21/16 06:51 Eosinophils 6 % (0-5) H 05/21/16 06:51 Platelet Estimate ADEQUATE (NORMAL) 05/21/16 06:51 PT 11.8 SECONDS (9.5-11.5) H 05/18/16 11:50 INR 1.12 (0.5-1.4) 05/18/16 11:50 PTT (Actin FS) 27.9 SECONDS (26.0-38.0) 05/18/16 11:50 Sodium 143 mEq/L (136-145) 05/21/16 06:51 Potassium 3.9 mEq/L (3.5-5.1) 05/21/16 06:51 Chloride 108 mEq/L (98-107) H 05/21/16 06:51 Carbon Dioxide 31.4 mEq/L (21.0-31.0) H 05/21/16 06:51 Anion Gap 7.5 (7.0-16.0) 05/21/16 06:51 BUN 3 mg/dL (7-25) L 05/21/16 06:51 Creatinine 0.7 mg/dL (0.6-1.2) 05/21/16 06:51 Est GFR ( Amer) > 60.0 ml/min (>90) 05/21/16 06:51 Est GFR (Non-Af Amer) > 60.0 ml/min 05/21/16 06:51 BUN/Creatinine Ratio 4.3 05/21/16 06:51 Glucose 91 mg/dL (70-105) 05/21/16 06:51 Calcium 8.9 mg/dL (8.6-10.3) 05/21/16 06:51 Total Bilirubin 0.2 mg/dL (0.3-1.0) L 05/21/16 06:51 AST 9 U/L (13-39) L 05/21/16 06:51 ALT 3 U/L (7-52) L 05/21/16 06:51 Alkaline Phosphatase 65 U/L (34-104) 05/21/16 06:51 Total Protein 5.7 gm/dL (6.0-8.3) L 05/21/16 06:51 Albumin 2.8 gm/dL (3.7-5.3) L 05/21/16 06:51 Globulin 2.9 gm/dL 05/21/16 06:51 Albumin/Globulin Ratio 1.0 (1.0-1.8) 05/21/16 06:51 Vancomycin Trough 19.9 ug/mL (10-20) 05/20/16 20:01 - Physical Exam Vitals and I&O: Vital Signs Temp 98.0 F 05/21/16 08:00 Pulse 76 05/21/16 09:25 Resp 18 05/21/16 08:00 BP 145/92 05/21/16 09:25 Pulse Ox 97 05/21/16 08:00 Intake & Output 05/20/16 05/21/16 05/21/16 18:59 06:59 18:59 Intake Total 350 750 250 Output Total 70 300 Balance 280 450 250 Intake: Intake, IV Amount 350 150 250 Piperacillin Sodium/ 100 150 Tazobact 3.375 gm In Sodium Chloride 0.9% 50 ml @ 100 mls/hr IV Q6HR [facility] Rx#:[id number] Vancomycin HCl 0.75 gm In 250 Sodium Chloride 0.9% 250 ml @ 165 mls/hr IV Q12HR @0900,2100 [facility] Rx#: [id number] Vancomycin HCl 1 gm In 250 Sodium Chloride 0.9% 250 ml @ 165 mls/hr IV Q12H [facility] Rx#:[id number] Oral 600 Output: Drainage 70 300 LT BUTTOCKS 70 300 Other: # Voids 2 # Bowel Movements 1 Active Medications: Current Medications Acetaminophen (Tylenol) 650 mg PO Q4HR PRN PRN Reason: fever >100 or mild pain Stop: 07/17/16 23:22 Atenolol (Tenormin) 25 mg PO DAILY [facility] Stop: 07/18/16 08:59 Last Admin: 05/21/16 09:25 Dose: 25 mg Ferrous Sulfate (Iron) 325 mg PO TID [facility] Stop: 07/18/16 08:59 Last Admin: 05/21/16 14:31 Dose: 325 mg Hydromorphone HCl (Dilaudid) 1 mg IVP Q6HR PRN PRN Reason: Pain (Severe) Stop: 07/17/16 23:27 Last Admin: 05/21/16 09:28 Dose: 1 mg Piperacillin Sod/Tazobactam (Sod 3.375 gm/ Sodium Chloride) 50 mls @ 100 mls/ hr IV Q6HR [facility] Stop: 07/18/16 00:00 Last Admin: 05/21/16 14:31 Dose: 100 mls/hr Vancomycin HCl 0.75 gm/ Sodium (Chloride) 250 mls @ 165 mls/hr IV Q12HR@0900, 2100 [facility] Stop: 07/20/16 08:59 Last Infusion: 05/21/16 12:00 Dose: Infused Lorazepam (Ativan) 0.5 mg PO Q6HR PRN; Protocol PRN Reason: Anxiety Stop: 07/17/16 23:22 Miscellaneous (Vancomycin Iv Per Pharmacy) 1 ea [facility] DAILY [facility] Stop: 07/18/16 08:59 Ondansetron HCl (Zofran Odt) 8 mg PO Q8H PRN PRN Reason: Nausea / Vomiting Stop: 07/17/16 23:29 Oxycodone/Acetaminophen (Percocet 5/325mg Oral Tab) 1 tab PO Q6H PRN PRN Reason: FOR PAIN Stop: 07/17/16 22:33 Last Admin: 05/20/16 03:59 Dose: 1 tab Sertraline HCl (Zoloft) 50 mg PO DAILY [facility] PRN Reason: Protocol Stop: 07/18/16 08:59 Last Admin: 05/21/16 09:24 Dose: 50 mg Temazepam (Restoril) 30 mg PO HS PRN; Protocol PRN Reason: Insomnia Stop: 07/17/16 22:28 Last Admin: 05/20/16 22:07 Dose: 30 mg General: no acute distress, cachectic HEENT: atraumatic, normocephalic, PERRLA Neck: supple, no thyromegaly Cardiovascular: S1S2, regular Lungs: clear to auscultation bilaterally, clear to percussion Abdomen: soft, no tender, no distended Extremities: no cyanosis, no clubbing, no edema Neurological: awake, alert, oriented Infectious Disease Assmt/Plan - Problem List Patient Problems: All Active Problems OPEN LESION INNER BUTTOCK (Acute ~05/18/16) - Assessment Assessment: Impression: 1. Right gluleal abscess. 2. Rectal CA s/p colectomy, on chemotherapy by Dr Corona. 3. HTN. 4. Prtotein calorie malnutrition. - Plan Plan: Continue same treatment. If needed may change antibiotics to levaquin po and flagyl po for 10 days. Mri of the A/P was ordered. Nutritional Asmnt/Malnutr-PDOC - Dietary Evaluation Malnutrition Findings (Please click <Entered> for more info): Nutritional Asmnt/Malnutrition Start: 05/19/16 11: 06 Text: Status: Complete Freq: Document 05/19/16 11:06 SHANON (Rec: 05/19/16 11:12 [email or web address] [email or web address]) Nutritional Asmnt/Malnutrition Patient General Information Nutritional Screening Consult Diagnosis Abscess and cellulitis Pertinent Medical Hx/Surgical Hx Rectal cancer on chemotherapy, HTN, depression, colostomy in place Subjective Information 61 year old female from SNF. RD consult for cellulitis of left buttock. Progress note: debridement scheduled for today. Pt was away to OR during visit. Spoke to RN, pt NPO this AM. Current Diet Order/ Nutrition Support Regular Pertinent Medications Iron, Dilaudid, Vancomycin, Zofran Pertinent Labs Reviewed. Nutritional Hx/Data Height 1.65 m Height (Calculated Centimeters) 165.1 Current Weight (lbs) 49.895 kg Weight (Calculated Kilograms) 49.9 Weight (Calculated Grams) 94253.2 [place] Body Weight 125 Weight Status Underweight GI Symptoms Food Allergies No Skin Integrity/Comment: Percy 15. Wound care: left buttock abscess Estimated Nutritional Goals Calories/Kcals/Kg IBW 125lb/56.8kg Kcals Calculated 1704-1988kcal (30-35kcal/kg) Protein Calculated 80-91g (1.4-1.6g/kg) Fluid: ml 1704-1988ml (1ml/kcal) Nutritional Problem 1. Problem Problem Increased prot and kcal needs related to Etiology hypermatabolic state, underweight aeb Signs/Symptoms: rectal cancer undergoing chemotherapy, risk of malnutrition, BMI 18.3, wound healing Intervention/Recommendation Comments 1. Resume regular diet. Monitor PO intake, pt is udnerweight with risk of weight loss/malnutrition related to cancer on chemotherapy. 2. 1 packet prosource for additional protein for wound healing and cancer. Expected Outcomes/Goals Expected Outcomes/Goals 1. Pt to meet at least 100% of estimated nutritional needs.
[2016-05-22] MEDS: HYDROmorphone 1 mg/mL 1mL Syr IVP PRN ×3 (00:20→16:45)
[2016-05-22 07:11] LABS: HEMATOCRIT 31.9 % (35.0-45.0); HEMOGLOBIN 10.6 gm/dL (11.7-15.5); MEAN CELL VOLUME 81.7 fl (81-100); MEAN CORPUSCULAR HEMOGLOBIN 27.1 pg (27.0-31.0); MEAN CORPUSCULAR HGB CONC 33.2 pg (28.0-36.0); MEAN PLATELET VOLUME 7.5 fl; PLATELET COUNT 430 Th/cmm (150-400); RED BLOOD COUNT 3.91 Mil/cmm (3.80-5.10); RED CELL DISTRIBUTION WIDTH 15.4 % (11.5-20.0); WHITE BLOOD COUNT 4.6 Th/cmm (4.8-10.8)
[2016-05-22 07:34] LABS: ALKALINE PHOSPHATASE 76 U/L (34-104); ANION GAP 7.6 (7.0-16.0); BILIRUBIN,TOTAL 0.2 mg/dL (0.3-1.0); BUN - UREA NITROGEN 3 mg/dL (7-25); BUN/CREATININE RATIO 3.8; CARBON DIOXIDE 32.9 mEq/L (21.0-31.0); CHLORIDE 107 mEq/L (98-107); CREATININE - SERUM 0.8 mg/dL (0.6-1.2); GLUCOSE 91 mg/dL (70-105); POTASSIUM SERUM 3.5 mEq/L (3.5-5.1); SGOT 9 U/L (13-39); SODIUM SERUM 144 mEq/L (136-145)
[2016-05-22 07:58] LABS: SGPT/ALT 3 U/L (7-52)
[2016-05-22 08:15] LABS: BAND NEUTROPHILE 0 % (0-10); TOTAL CELLS COUNTED 100
[2016-05-22 08:16] LABS: EOSINOPHIL 5 % (0-5); NEUTROPHILS 63 % (40-80); PLATELET ESTIMATE ADEQUATE (NORMAL)
[2016-05-22] MEDS: Ferrous Sulfate 325 MG TAB PO SCH ×3 (10:09→21:50)
--- NOTE | 2016-05-22 16:41 | General Progress Note ---
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 which was not resected at time of colostomy Objective - Results Result Diagrams: 05/22/16 06:00 05/22/16 06:00 Recent Labs: Laboratory Last Values WBC 4.6 Th/cmm (4.8-10.8) L 05/22/16 06:00 RBC 3.91 Mil/cmm (3.80-5.10) 05/22/16 06:00 Hgb 10.6 gm/dL (11.7-15.5) L 05/22/16 06:00 Hct 31.9 % (35.0-45.0) L 05/22/16 06:00 MCV 81.7 fl (81-100) 05/22/16 06:00 MCH 27.1 pg (27.0-31.0) 05/22/16 06:00 MCHC Differential 33.2 pg (28.0-36.0) 05/22/16 06:00 RDW 15.4 % (11.5-20.0) 05/22/16 06:00 Plt Count 430 Th/cmm (150-400) H 05/22/16 06:00 MPV 7.5 fl 05/22/16 06:00 Neutrophils % 72.1 % (40.0-80.0) 05/20/16 05:30 Band Neutrophils % 0 % (0-10) 05/22/16 06:00 Lymphocytes % 9.8 % (20.0-50.0) L 05/20/16 05:30 Monocytes % 13.8 % (2.0-10.0) H 05/20/16 05:30 Eosinophils % 3.5 % (0.0-5.0) 05/20/16 05:30 Basophils % 0.8 % (0.0-2.0) 05/20/16 05:30 Neutrophils (Manual) 63 % (40-80) 05/22/16 06:00 Lymphocytes 18 % (20-50) L 05/22/16 06:00 Monocytes 14 % (2-10) H 05/22/16 06:00 Eosinophils 5 % (0-5) 05/22/16 06:00 Platelet Estimate ADEQUATE (NORMAL) 05/22/16 06:00 PT 11.8 SECONDS (9.5-11.5) H 05/18/16 11:50 INR 1.12 (0.5-1.4) 05/18/16 11:50 PTT (Actin FS) 27.9 SECONDS (26.0-38.0) 05/18/16 11:50 Sodium 144 mEq/L (136-145) 05/22/16 06:00 Potassium 3.5 mEq/L (3.5-5.1) 05/22/16 06:00 Chloride 107 mEq/L (98-107) 05/22/16 06:00 Carbon Dioxide 32.9 mEq/L (21.0-31.0) H 05/22/16 06:00 Anion Gap 7.6 (7.0-16.0) 05/22/16 06:00 BUN 3 mg/dL (7-25) L 05/22/16 06:00 Creatinine 0.8 mg/dL (0.6-1.2) 05/22/16 06:00 Est GFR ( Amer) > 60.0 ml/min (>90) 05/22/16 06:00 Est GFR (Non-Af Amer) > 60.0 ml/min 05/22/16 06:00 BUN/Creatinine Ratio 3.8 05/22/16 06:00 Glucose 91 mg/dL (70-105) 05/22/16 06:00 Calcium 9.0 mg/dL (8.6-10.3) 05/22/16 06:00 Total Bilirubin 0.2 mg/dL (0.3-1.0) L 05/22/16 06:00 AST 9 U/L (13-39) L 05/22/16 06:00 ALT 3 U/L (7-52) L 05/22/16 06:00 Alkaline Phosphatase 76 U/L (34-104) 05/22/16 06:00 Total Protein 5.7 gm/dL (6.0-8.3) L 05/22/16 06:00 Albumin 2.8 gm/dL (3.7-5.3) L 05/22/16 06:00 Globulin 2.9 gm/dL 05/22/16 06:00 Albumin/Globulin Ratio 1.0 (1.0-1.8) 04/10/17 06:00 Vancomycin Trough 19.9 ug/mL (10-20) 05/20/16 20:01 - Physical Exam Vitals and I&O: Vital Signs Temp 97.4 F 05/22/16 16:00 Pulse 65 05/22/16 16:00 Resp 18 05/22/16 16:00 BP 129/77 05/22/16 16:00 Pulse Ox 96 05/22/16 16:00 Intake & Output 05/21/16 05/22/16 05/22/16 18:59 06:59 18:59 Intake Total 950 450 480 Output Total 30 30 Balance 920 420 480 Intake: Intake, IV Amount 350 350 Piperacillin Sodium/ 100 100 Tazobact 3.375 gm In Sodium Chloride 0.9% 50 ml @ 100 mls/hr IV Q6HR [facility] Rx#:[id number] Vancomycin HCl 0.75 gm In 250 250 Sodium Chloride 0.9% 250 ml @ 165 mls/hr IV Q12HR @0900,2100 [facility] Rx#: [id number] Oral 600 100 480 Output: Drainage 30 30 LT BUTTOCKS 30 30 Other: # Voids 3 3 # Bowel Movements 1 Active Medications: Current Medications Acetaminophen (Tylenol) 650 mg PO Q4HR PRN PRN Reason: fever >100 or mild pain Stop: 07/17/16 23:22 Atenolol (Tenormin) 25 mg PO DAILY [facility] Stop: 07/18/16 08:59 Last Admin: 05/22/16 10:09 Dose: 25 mg Ferrous Sulfate (Iron) 325 mg PO TID [facility] Stop: 07/18/16 08:59 Last Admin: 05/22/16 13:38 Dose: 325 mg Hydromorphone HCl (Dilaudid) 1 mg IVP Q6HR PRN PRN Reason: Pain (Severe) Stop: 07/17/16 23:27 Last Admin: 05/22/16 10:22 Dose: 1 mg Piperacillin Sod/Tazobactam (Sod 3.375 gm/ Sodium Chloride) 50 mls @ 100 mls/ hr IV Q6HR [facility] Stop: 07/18/16 00:00 Last Admin: 05/22/16 13:37 Dose: 100 mls/hr Vancomycin HCl 0.75 gm/ Sodium (Chloride) 250 mls @ 165 mls/hr IV Q12HR@0900, 2100 [facility] Stop: 07/20/16 08:59 Last Admin: 05/22/16 10:12 Dose: 165 mls/hr Lorazepam (Ativan) 0.5 mg PO Q6HR PRN; Protocol PRN Reason: Anxiety Stop: 07/17/16 23:22 Miscellaneous (Vancomycin Iv Per Pharmacy) 1 ea [facility] DAILY [facility] Stop: 07/18/16 08:59 Ondansetron HCl (Zofran Odt) 8 mg PO Q8H PRN PRN Reason: Nausea / Vomiting Stop: 07/17/16 23:29 Oxycodone/Acetaminophen (Percocet 5/325mg Oral Tab) 1 tab PO Q6H PRN PRN Reason: FOR PAIN Stop: 07/17/16 22:33 Last Admin: 05/20/16 03:59 Dose: 1 tab Sertraline HCl (Zoloft) 50 mg PO DAILY [facility] PRN Reason: Protocol Stop: 07/18/16 08:59 Last Admin: 05/22/16 10:09 Dose: 50 mg Temazepam (Restoril) 30 mg PO HS PRN; Protocol PRN Reason: Insomnia Stop: 07/17/16 22:28 Last Admin: 05/21/16 21:33 Dose: 30 mg Assessment/Plan - Problem List Patient Problems: All Active Problems OPEN LESION INNER BUTTOCK (Acute ~05/18/16) Nutritional Asmnt/Malnutr-PDOC - Dietary Evaluation Malnutrition Findings (Please click <Entered> for more info): Nutritional Asmnt/Malnutrition Start: 05/19/16 11: 06 Text: Status: Complete Freq: Document 05/19/16 11:06 GSUN (Rec: 05/19/16 11:12 [email or web address] [email or web address]) Nutritional Asmnt/Malnutrition Patient General Information Nutritional Screening Consult Diagnosis Abscess and cellulitis Pertinent Medical Hx/Surgical Hx Rectal cancer on chemotherapy, HTN, depression, colostomy in place Subjective Information 61 year old female from SNF. RD consult for cellulitis of left buttock. Progress note: debridement scheduled for today. Pt was away to OR during visit. Spoke to RN, pt NPO this AM. Current Diet Order/ Nutrition Support Regular Pertinent Medications Iron, Dilaudid, Vancomycin, Zofran Pertinent Labs Reviewed. Nutritional Hx/Data Height 1.65 m Height (Calculated Centimeters) 165.1 Current Weight (lbs) 49.895 kg Weight (Calculated Kilograms) 49.9 Weight (Calculated Grams) 98478.2 [place] Body Weight 125 Weight Status Underweight GI Symptoms Food Allergies No Skin Integrity/Comment: Percy 15. Wound care: left buttock abscess Estimated Nutritional Goals Calories/Kcals/Kg IBW 125lb/56.8kg Kcals Calculated 1704-1988kcal (30-35kcal/kg) Protein Calculated 80-91g (1.4-1.6g/kg) Fluid: ml 1704-1988ml (1ml/kcal) Nutritional Problem 1. Problem Problem Increased prot and kcal needs related to Etiology hypermatabolic state, underweight aeb Signs/Symptoms: rectal cancer undergoing chemotherapy, risk of malnutrition, BMI 18.3, wound healing Intervention/Recommendation Comments 1. Resume regular diet. Monitor PO intake, pt is udnerweight with risk of weight loss/malnutrition related to cancer on chemotherapy. 2. 1 packet prosource for additional protein for wound healing and cancer. Expected Outcomes/Goals Expected Outcomes/Goals 1. Pt to meet at least 100% of estimated nutritional needs.
--- NOTE | 2016-05-22 16:43 | Pathology Report ---
[id number] Collection Date: 05/19/2016 Surgeon: Dr. Poly Cagle Specimen Description: Debrided tissue, left buttock Gross Description: Received in formalin is a 2.0 x 1.4 x 0.3 cm portion of ulcerated kc-red soft tissue. Sectioning shows degenerated soft tissue. Totally submitted in one cassette. Microscopic Description: The histologic sections show necrotic fibroconnective tissue with extensive acute suppurative inflammation present consisting of large collections of neutrophils within a necrotic tissue background. Diagnosis: Ulcerated necrotic tissue consistent with debridement (left buttock). JOB# [id number] [facility]
[2016-05-23] MEDS: HYDROmorphone 1 mg/mL 1mL Syr IVP PRN ×2 (03:45→12:06)
[2016-05-23] MEDS: Ferrous Sulfate 325 MG TAB PO SCH ×2 (09:00→13:25)
--- NOTE | 2016-05-23 11:02 | Infectious Disease Prog Note ---
Infectious Disease Subjective - Review of Systems Service Date: 05/23/16 Subjective: There is no fever, no chills. Refused PICC line (offered for prison antbiotics) and wound vac. Infectious Disease Objective - Results Result Diagrams: 05/22/16 06:00 05/22/16 06:00 Recent Labs: Laboratory Last Values WBC 4.6 Th/cmm (4.8-10.8) L 05/22/16 06:00 RBC 3.91 Mil/cmm (3.80-5.10) 05/22/16 06:00 Hgb 10.6 gm/dL (11.7-15.5) L 05/22/16 06:00 Hct 31.9 % (35.0-45.0) L 05/22/16 06:00 MCV 81.7 fl (81-100) 05/22/16 06:00 MCH 27.1 pg (27.0-31.0) 05/22/16 06:00 MCHC Differential 33.2 pg (28.0-36.0) 05/22/16 06:00 RDW 15.4 % (11.5-20.0) 05/22/16 06:00 Plt Count 430 Th/cmm (150-400) H 05/22/16 06:00 MPV 7.5 fl 05/22/16 06:00 Neutrophils % 72.1 % (40.0-80.0) 05/20/16 05:30 Band Neutrophils % 0 % (0-10) 05/22/16 06:00 Lymphocytes % 9.8 % (20.0-50.0) L 05/20/16 05:30 Monocytes % 13.8 % (2.0-10.0) H 05/20/16 05:30 Eosinophils % 3.5 % (0.0-5.0) 05/20/16 05:30 Basophils % 0.8 % (0.0-2.0) 05/20/16 05:30 Neutrophils (Manual) 63 % (40-80) 05/22/16 06:00 Lymphocytes 18 % (20-50) L 05/22/16 06:00 Monocytes 14 % (2-10) H 05/22/16 06:00 Eosinophils 5 % (0-5) 05/22/16 06:00 Platelet Estimate ADEQUATE (NORMAL) 05/22/16 06:00 PT 11.8 SECONDS (9.5-11.5) H 05/18/16 11:50 INR 1.12 (0.5-1.4) 05/18/16 11:50 PTT (Actin FS) 27.9 SECONDS (26.0-38.0) 05/18/16 11:50 Sodium 144 mEq/L (136-145) 05/22/16 06:00 Potassium 3.5 mEq/L (3.5-5.1) 05/22/16 06:00 Chloride 107 mEq/L (98-107) 05/22/16 06:00 Carbon Dioxide 32.9 mEq/L (21.0-31.0) H 05/22/16 06:00 Anion Gap 7.6 (7.0-16.0) 05/22/16 06:00 BUN 3 mg/dL (7-25) L 05/22/16 06:00 Creatinine 0.8 mg/dL (0.6-1.2) 05/22/16 06:00 Est GFR ( Amer) > 60.0 ml/min (>90) 05/22/16 06:00 Est GFR (Non-Af Amer) > 60.0 ml/min 05/22/16 06:00 BUN/Creatinine Ratio 3.8 05/22/16 06:00 Glucose 91 mg/dL (70-105) 05/22/16 06:00 Calcium 9.0 mg/dL (8.6-10.3) 05/22/16 06:00 Total Bilirubin 0.2 mg/dL (0.3-1.0) L 05/22/16 06:00 AST 9 U/L (13-39) L 05/22/16 06:00 ALT 3 U/L (7-52) L 05/22/16 06:00 Alkaline Phosphatase 76 U/L (34-104) 05/22/16 06:00 Total Protein 5.7 gm/dL (6.0-8.3) L 05/22/16 06:00 Albumin 2.8 gm/dL (3.7-5.3) L 05/22/16 06:00 Globulin 2.9 gm/dL 05/22/16 06:00 Albumin/Globulin Ratio 1.0 (1.0-1.8) 05/22/16 06:00 Vancomycin Trough 22.4 ug/mL (10-20) H 05/22/16 20:12 - Physical Exam Vitals and I&O: Vital Signs Temp 97.4 F 05/23/16 08:00 Pulse 75 05/23/16 08:00 Resp 18 05/23/16 08:00 BP 136/82 05/23/16 08:00 Pulse Ox 98 05/23/16 08:00 Intake & Output 05/22/16 05/23/16 05/23/16 18:59 06:59 18:59 Intake Total 830 200 Balance 830 200 Intake: Intake, IV Amount 350 50 Piperacillin Sodium/ 100 50 Tazobact 3.375 gm In Sodium Chloride 0.9% 50 ml @ 100 mls/hr IV Q6HR [facility] Rx#:[id number] Vancomycin HCl 0.75 gm In 250 Sodium Chloride 0.9% 250 ml @ 165 mls/hr IV Q12HR @0900,2100 [facility] Rx#: [id number] Oral 480 150 Other: # Voids 2 Active Medications: Current Medications Acetaminophen (Tylenol) 650 mg PO Q4HR PRN PRN Reason: fever >100 or mild pain Stop: 07/17/16 23:22 Atenolol (Tenormin) 25 mg PO DAILY [facility] Stop: 07/18/16 08:59 Last Admin: 05/22/16 10:09 Dose: 25 mg Ferrous Sulfate (Iron) 325 mg PO TID [facility] Stop: 07/18/16 08:59 Last Admin: 05/22/16 21:50 Dose: 325 mg Hydromorphone HCl (Dilaudid) 1 mg IVP Q6HR PRN PRN Reason: Pain (Severe) Stop: 07/17/16 23:27 Last Admin: 05/23/16 03:45 Dose: 1 mg Piperacillin Sod/Tazobactam (Sod 3.375 gm/ Sodium Chloride) 50 mls @ 100 mls/ hr IV Q6HR [facility] Stop: 07/18/16 00:00 Last Admin: 05/23/16 06:34 Dose: 100 mls/hr Vancomycin HCl 0.75 gm/ Sodium (Chloride) 250 mls @ 165 mls/hr IV Q12HR@0900, 2100 [facility] Stop: 07/20/16 08:59 Last Admin: 05/22/16 21:50 Dose: 165 mls/hr Lorazepam (Ativan) 0.5 mg PO Q6HR PRN; Protocol PRN Reason: Anxiety Stop: 07/17/16 23:22 Miscellaneous (Vancomycin Iv Per Pharmacy) 1 ea [facility] DAILY E[facility]RA Stop: 07/18/16 08:59 Ondansetron HCl (Zofran Odt) 8 mg PO Q8H PRN PRN Reason: Nausea / Vomiting Stop: 07/17/16 23:29 Oxycodone/Acetaminophen (Percocet 5/325mg Oral Tab) 1 tab PO Q6H PRN PRN Reason: FOR PAIN Stop: 07/17/16 22:33 Last Admin: 05/20/16 03:59 Dose: 1 tab Sertraline HCl (Zoloft) 50 mg PO DAILY [facility] PRN Reason: Protocol Stop: 07/18/16 08:59 Last Admin: 05/22/16 10:09 Dose: 50 mg Temazepam (Restoril) 30 mg PO HS PRN; Protocol PRN Reason: Insomnia Stop: 07/17/16 22:28 Last Admin: 05/22/16 21:55 Dose: 30 mg General: no acute distress, cachectic HEENT: atraumatic, normocephalic, PERRLA Neck: supple Cardiovascular: S1S2, regular Lungs: clear to auscultation bilaterally, clear to percussion Abdomen: soft, other (Colostomy), no tender, no distended Extremities: no cyanosis, no clubbing, no edema Neurological: awake, alert, oriented Skin: other (Left gluteal wound with wound vac.) Infectious Disease Assmt/Plan - Problem List Patient Problems: All Active Problems OPEN LESION INNER BUTTOCK (Acute ~05/18/16) - Assessment Assessment: Impression: 1. left gluleal abscess. 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 R/o fistula, waiting for MRI. Suspect osteomyelitis ( the abscess was deep to the bone). 2. Rectal CA s/p colectomy, on chemotherapy by Dr Corona. 3. HTN. 4. Protein calorie malnutrition. - Plan Plan: Continue same treatment. Change antibiotics to rocephin iv and flagyl po for 6 [address] DW with DR Cagle, Dr Colin, Dr Corona and case management, DC plan to SNF. Nutritional Asmnt/Malnutr-PDOC - Dietary Evaluation Malnutrition Findings (Please click <Entered> for more info): Nutritional Asmnt/Malnutrition Start: 05/19/16 11: 06 Text: Status: Complete Freq: Document 05/19/16 11:06 SHANON (Rec: 05/19/16 11:12 [email or web address]) Nutritional Asmnt/Malnutrition Patient General Information Nutritional Screening Consult Diagnosis Abscess and cellulitis Pertinent Medical Hx/Surgical Hx Rectal cancer on chemotherapy, HTN, depression, colostomy in place Subjective Information 61 year old female from SNF. RD consult for cellulitis of left buttock. Progress note: debridement scheduled for today. Pt was away to OR during visit. Spoke to RN, pt NPO this AM. Current Diet Order/ Nutrition Support Regular Pertinent Medications Iron, Dilaudid, Vancomycin, Zofran Pertinent Labs Reviewed. Nutritional Hx/Data Height 1.65 m Height (Calculated Centimeters) 165.1 Current Weight (lbs) 49.895 kg Weight (Calculated Kilograms) 49.9 Weight (Calculated Grams) 57829.2 [place] Body Weight 125 Weight Status Underweight GI Symptoms Food Allergies No Skin Integrity/Comment: Percy 15. Wound care: left buttock abscess Estimated Nutritional Goals Calories/Kcals/Kg IBW 125lb/56.8kg Kcals Calculated 1704-1988kcal (30-35kcal/kg) Protein Calculated 80-91g (1.4-1.6g/kg) Fluid: ml 1704-1988ml (1ml/kcal) Nutritional Problem 1. Problem Problem Increased prot and kcal needs related to Etiology hypermatabolic state, underweight aeb Signs/Symptoms: rectal cancer undergoing chemotherapy, risk of malnutrition, BMI 18.3, wound healing Intervention/Recommendation Comments 1. Resume regular diet. Monitor PO intake, pt is udnerweight with risk of weight loss/malnutrition related to cancer on chemotherapy. 2. 1 packet prosource for additional protein for wound healing and cancer. Expected Outcomes/Goals Expected Outcomes/Goals 1. Pt to meet at least 100% of estimated nutritional needs.
--- NOTE | 2016-05-23 12:03 | General Progress Note ---
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 Barajas patient needs excision of remaining remain to eliminate fistula patient is refusing now, wants to go home now Objective - Results Result Diagrams: 05/22/16 06:00 05/22/16 06:00 Recent Labs: Laboratory Last Values WBC 4.6 Th/cmm (4.8-10.8) L 05/22/16 06:00 RBC 3.91 Mil/cmm (3.80-5.10) 05/22/16 06:00 Hgb 10.6 gm/dL (11.7-15.5) L 05/22/16 06:00 Hct 31.9 % (35.0-45.0) L 05/22/16 06:00 MCV 81.7 fl (81-100) 05/22/16 06:00 MCH 27.1 pg (27.0-31.0) 05/22/16 06:00 MCHC Differential 33.2 pg (28.0-36.0) 05/22/16 06:00 RDW 15.4 % (11.5-20.0) 05/22/16 06:00 Plt Count 430 Th/cmm (150-400) H 05/22/16 06:00 MPV 7.5 fl 05/22/16 06:00 Neutrophils % 72.1 % (40.0-80.0) 05/20/16 05:30 Band Neutrophils % 0 % (0-10) 05/22/16 06:00 Lymphocytes % 9.8 % (20.0-50.0) L 05/20/16 05:30 Monocytes % 13.8 % (2.0-10.0) H 05/20/16 05:30 Eosinophils % 3.5 % (0.0-5.0) 05/20/16 05:30 Basophils % 0.8 % (0.0-2.0) 05/20/16 05:30 Neutrophils (Manual) 63 % (40-80) 05/22/16 06:00 Lymphocytes 18 % (20-50) L 05/22/16 06:00 Monocytes 14 % (2-10) H 05/22/16 06:00 Eosinophils 5 % (0-5) 05/22/16 06:00 Platelet Estimate ADEQUATE (NORMAL) 05/22/16 06:00 PT 11.8 SECONDS (9.5-11.5) H 05/18/16 11:50 INR 1.12 (0.5-1.4) 05/18/16 11:50 PTT (Actin FS) 27.9 SECONDS (26.0-38.0) 05/18/16 11:50 Sodium 144 mEq/L (136-145) 05/22/16 06:00 Potassium 3.5 mEq/L (3.5-5.1) 05/22/16 06:00 Chloride 107 mEq/L (98-107) 05/22/16 06:00 Carbon Dioxide 32.9 mEq/L (21.0-31.0) H 05/22/16 06:00 Anion Gap 7.6 (7.0-16.0) 05/22/16 06:00 BUN 3 mg/dL (7-25) L 05/22/16 06:00 Creatinine 0.8 mg/dL (0.6-1.2) 05/22/16 06:00 Est GFR ( Amer) > 60.0 ml/min (>90) 05/22/16 06:00 Est GFR (Non-Af Amer) > 60.0 ml/min 05/22/16 06:00 BUN/Creatinine Ratio 3.8 05/22/16 06:00 Glucose 91 mg/dL (70-105) 05/22/16 06:00 Calcium 9.0 mg/dL (8.6-10.3) 05/22/16 06:00 Total Bilirubin 0.2 mg/dL (0.3-1.0) L 05/22/16 06:00 AST 9 U/L (13-39) L 05/22/16 06:00 ALT 3 U/L (7-52) L 05/22/16 06:00 Alkaline Phosphatase 76 U/L (34-104) 05/22/16 06:00 Total Protein 5.7 gm/dL (6.0-8.3) L 05/22/16 06:00 Albumin 2.8 gm/dL (3.7-5.3) L 05/22/16 06:00 Globulin 2.9 gm/dL 05/22/16 06:00 Albumin/Globulin Ratio 1.0 (1.0-1.8) 05/22/16 06:00 Vancomycin Trough 22.4 ug/mL (10-20) H 05/22/16 20:12 - Physical Exam Vitals and I&O: Vital Signs Temp 97.4 F 05/23/16 08:00 Pulse 75 05/23/16 08:00 Resp 18 05/23/16 08:00 BP 136/82 05/23/16 08:00 Pulse Ox 98 05/23/16 08:00 Intake & Output 05/22/16 05/23/16 05/23/16 18:59 06:59 18:59 Intake Total 830 200 Balance 830 200 Intake: Intake, IV Amount 350 50 Piperacillin Sodium/ 100 50 Tazobact 3.375 gm In Sodium Chloride 0.9% 50 ml @ 100 mls/hr IV Q6HR [facility] Rx#:[id number] Vancomycin HCl 0.75 gm In 250 Sodium Chloride 0.9% 250 ml @ 165 mls/hr IV Q12HR @0900,2100 [facility] Rx#: [id number] Oral 480 150 Other: # Voids 2 Active Medications: Current Medications Acetaminophen (Tylenol) 650 mg PO Q4HR PRN PRN Reason: fever >100 or mild pain Stop: 07/17/16 23:22 Atenolol (Tenormin) 25 mg PO DAILY [facility] Stop: 07/18/16 08:59 Last Admin: 05/23/16 09:00 Dose: Not Given Ferrous Sulfate (Iron) 325 mg PO TID [facility] Stop: 07/18/16 08:59 Last Admin: 05/23/16 09:00 Dose: Not Given Hydromorphone HCl (Dilaudid) 1 mg IVP Q6HR PRN PRN Reason: Pain (Severe) Stop: 07/17/16 23:27 Last Admin: 05/23/16 03:45 Dose: 1 mg Ceftriaxone Sodium 1 gm/ (Dextrose) 50 mls @ 100 mls/hr IV Q24H [facility] Stop: 07/22/16 10:59 Lorazepam (Ativan) 0.5 mg PO Q6HR PRN; Protocol PRN Reason: Anxiety Stop: 07/17/16 23:22 Metronidazole (Flagyl) 500 mg PO TID [facility] Stop: 06/02/16 13:59 Ondansetron HCl (Zofran Odt) 8 mg PO Q8H PRN PRN Reason: Nausea / Vomiting Stop: 07/17/16 23:29 Oxycodone/Acetaminophen (Percocet 5/325mg Oral Tab) 1 tab PO Q6H PRN PRN Reason: FOR PAIN Stop: 07/17/16 22:33 Last Admin: 05/20/16 03:59 Dose: 1 tab Sertraline HCl (Zoloft) 50 mg PO DAILY EZRA PRN Reason: Protocol Stop: 07/18/16 08:59 Last Admin: 05/23/16 09:00 Dose: Not Given Temazepam (Restoril) 30 mg PO HS PRN; Protocol PRN Reason: Insomnia Stop: 07/17/16 22:28 Last Admin: 05/22/16 21:55 Dose: 30 mg - Procedures Procedures: Procedures Procedure Code Date COMPRESSION OF BACK USING PRESSURE DRESSING [id number] 05/18/16 EXCISION OF LEFT PELVIC BONE, OPEN APPROACH [id number] 05/18/16 NEG PRESS WOUND TX </=50 CM [address] 05/18/16 REMOVAL OF PRESSURE SORE 79678 05/18/16 Assessment/Plan - Problem List Patient Problems: All Active Problems OPEN LESION INNER BUTTOCK (Acute ~05/18/16) Nutritional Asmnt/Malnutr-PDOC - Dietary Evaluation Malnutrition Findings (Please click <Entered> for more info): Nutritional Asmnt/Malnutrition Start: 05/19/16 11: 06 Text: Status: Complete Freq: Document 05/19/16 11:06 GSUN (Rec: 05/19/16 11:12 [email or web address]) Nutritional Asmnt/Malnutrition Patient General Information Nutritional Screening Consult Diagnosis Abscess and cellulitis Pertinent Medical Hx/Surgical Hx Rectal cancer on chemotherapy, HTN, depression, colostomy in place Subjective Information 61 year old female from SNF. RD consult for cellulitis of left buttock. Progress note: debridement scheduled for today. Pt was away to OR during visit. Spoke to RN, pt NPO this AM. Current Diet Order/ Nutrition Support Regular Pertinent Medications Iron, Dilaudid, Vancomycin, Zofran Pertinent Labs Reviewed. Nutritional Hx/Data Height 1.65 m Height (Calculated Centimeters) 165.1 Current Weight (lbs) 49.895 kg Weight (Calculated Kilograms) 49.9 Weight (Calculated Grams) 51026.2 [place] Body Weight 125 Weight Status Underweight GI Symptoms Food Allergies No Skin Integrity/Comment: Percy 15. Wound care: left buttock abscess Estimated Nutritional Goals Calories/Kcals/Kg IBW 125lb/56.8kg Kcals Calculated 1704-1988kcal (30-35kcal/kg) Protein Calculated 80-91g (1.4-1.6g/kg) Fluid: ml 1704-1988ml (1ml/kcal) Nutritional Problem 1. Problem Problem Increased prot and kcal needs related to Etiology hypermatabolic state, underweight aeb Signs/Symptoms: rectal cancer undergoing chemotherapy, risk of malnutrition, BMI 18.3, wound healing Intervention/Recommendation Comments 1. Resume regular diet. Monitor PO intake, pt is udnerweight with risk of weight loss/malnutrition related to cancer on chemotherapy. 2. 1 packet prosource for additional protein for wound healing and cancer. Expected Outcomes/Goals Expected Outcomes/Goals 1. Pt to meet at least 100% of estimated nutritional needs.
--- NOTE | 2016-05-23 12:09 | Diagnostic Imaging Report ---
MRI of the pelvis without intravenous contrast HISTORY: Rectal carcinoma Multiple MRI sequences were obtained in the, coronal, and sagittal planes. The exam demonstrates abnormal heterogeneous density within the perianal and rectal region. Obliteration of the rectum and obliteration of the anal margins. Resulting in obscuration of the rectal margins and obliteration of perirectal fat. This extends upward within the posterior pelvis. A tubular-like density is noted to extend through the lower posterior pelvis. Obscuration of the adjacent bowel wall margins. Findings should be correlated with patient's medical/surgical history. Heterogeneous density between the posterior margin of the mass in the sacrum characterized by increased signal intensity on T2 sequences. Exact etiology of the findings is uncertain. The urinary bladder retains normal contour. No intraluminal abnormalities. IMPRESSION: 1. Abnormal density resulting in obliteration of the rectum and perianal margins. Findings consistent with patient's history of neoplasm. A tubular shaped density presumably related to surgical changes extend through the abnormal area. Obliteration of the adjacent bowel wall margins. If necessary, a CT scan with oral and intravenous contrast may provide additional detail.
--- NOTE | 2016-05-23 12:49 | General Progress Note ---
Subjective - Review of Systems Service Date: 05/23/16 Subjective: I feel sad Objective - Results Result Diagrams: 05/22/16 06:00 05/22/16 06:00 Recent Labs: Laboratory Last Values WBC 4.6 Th/cmm (4.8-10.8) L 05/22/16 06:00 RBC 3.91 Mil/cmm (3.80-5.10) 05/22/16 06:00 Hgb 10.6 gm/dL (11.7-15.5) L 05/22/16 06:00 Hct 31.9 % (35.0-45.0) L 05/22/16 06:00 MCV 81.7 fl (81-100) 05/22/16 06:00 MCH 27.1 pg (27.0-31.0) 05/22/16 06:00 MCHC Differential 33.2 pg (28.0-36.0) 05/22/16 06:00 RDW 15.4 % (11.5-20.0) 05/22/16 06:00 Plt Count 430 Th/cmm (150-400) H 05/22/16 06:00 MPV 7.5 fl 05/22/16 06:00 Neutrophils % 72.1 % (40.0-80.0) 05/20/16 05:30 Band Neutrophils % 0 % (0-10) 05/22/16 06:00 Lymphocytes % 9.8 % (20.0-50.0) L 05/20/16 05:30 Monocytes % 13.8 % (2.0-10.0) H 05/20/16 05:30 Eosinophils % 3.5 % (0.0-5.0) 05/20/16 05:30 Basophils % 0.8 % (0.0-2.0) 05/20/16 05:30 Neutrophils (Manual) 63 % (40-80) 05/22/16 06:00 Lymphocytes 18 % (20-50) L 05/22/16 06:00 Monocytes 14 % (2-10) H 05/22/16 06:00 Eosinophils 5 % (0-5) 05/22/16 06:00 Platelet Estimate ADEQUATE (NORMAL) 05/22/16 06:00 PT 11.8 SECONDS (9.5-11.5) H 05/18/16 11:50 INR 1.12 (0.5-1.4) 05/18/16 11:50 PTT (Actin FS) 27.9 SECONDS (26.0-38.0) 05/18/16 11:50 Sodium 144 mEq/L (136-145) 05/22/16 06:00 Potassium 3.5 mEq/L (3.5-5.1) 05/22/16 06:00 Chloride 107 mEq/L (98-107) 05/22/16 06:00 Carbon Dioxide 32.9 mEq/L (21.0-31.0) H 05/22/16 06:00 Anion Gap 7.6 (7.0-16.0) 05/22/16 06:00 BUN 3 mg/dL (7-25) L 05/22/16 06:00 Creatinine 0.8 mg/dL (0.6-1.2) 05/22/16 06:00 Est GFR ( Amer) > 60.0 ml/min (>90) 05/22/16 06:00 Est GFR (Non-Af Amer) > 60.0 ml/min 05/22/16 06:00 BUN/Creatinine Ratio 3.8 05/22/16 06:00 Glucose 91 mg/dL (70-105) 05/22/16 06:00 Calcium 9.0 mg/dL (8.6-10.3) 05/22/16 06:00 Total Bilirubin 0.2 mg/dL (0.3-1.0) L 05/22/16 06:00 AST 9 U/L (13-39) L 05/22/16 06:00 ALT 3 U/L (7-52) L 05/22/16 06:00 Alkaline Phosphatase 76 U/L (34-104) 05/22/16 06:00 Total Protein 5.7 gm/dL (6.0-8.3) L 05/22/16 06:00 Albumin 2.8 gm/dL (3.7-5.3) L 05/22/16 06:00 Globulin 2.9 gm/dL 05/22/16 06:00 Albumin/Globulin Ratio 1.0 (1.0-1.8) 05/22/16 06:00 Vancomycin Trough 22.4 ug/mL (10-20) H 05/22/16 20:12 - Physical Exam Vitals and I&O: Vital Signs Temp 97.6 F 05/23/16 12:00 Pulse 76 05/23/16 12:00 Resp 18 05/23/16 12:00 BP 134/80 05/23/16 12:00 Pulse Ox 100 05/23/16 12:00 Intake & Output 05/22/16 05/23/16 05/23/16 18:59 06:59 18:59 Intake Total 830 200 Balance 830 200 Intake: Intake, IV Amount 350 50 Piperacillin Sodium/ 100 50 Tazobact 3.375 gm In Sodium Chloride 0.9% 50 ml @ 100 mls/hr IV Q6HR [facility] Rx#:[id number] Vancomycin HCl 0.75 gm In 250 Sodium Chloride 0.9% 250 ml @ 165 mls/hr IV Q12HR @0900,2100 [facility] Rx#: [id number] Oral 480 150 Other: # Voids 2 Active Medications: Current Medications Acetaminophen (Tylenol) 650 mg PO Q4HR PRN PRN Reason: fever >100 or mild pain Stop: 07/17/16 23:22 Atenolol (Tenormin) 25 mg PO DAILY [facility] Stop: 07/18/16 08:59 Last Admin: 05/23/16 09:00 Dose: Not Given Ferrous Sulfate (Iron) 325 mg PO TID [facility] Stop: 07/18/16 08:59 Last Admin: 05/23/16 09:00 Dose: Not Given Hydromorphone HCl (Dilaudid) 1 mg IVP Q6HR PRN PRN Reason: Pain (Severe) Stop: 07/17/16 23:27 Last Admin: 05/23/16 12:06 Dose: 1 mg Ceftriaxone Sodium 1 gm/ (Dextrose) 50 mls @ 100 mls/hr IV Q24H [facility] Stop: 07/22/16 10:59 Last Admin: 05/23/16 12:04 Dose: 100 mls/hr Lorazepam (Ativan) 0.5 mg PO Q6HR PRN; Protocol PRN Reason: Anxiety Stop: 07/17/16 23:22 Metronidazole (Flagyl) 500 mg PO TID [facility] Stop: 06/02/16 13:59 Ondansetron HCl (Zofran Odt) 8 mg PO Q8H PRN PRN Reason: Nausea / Vomiting Stop: 07/17/16 23:29 Oxycodone/Acetaminophen (Percocet 5/325mg Oral Tab) 1 tab PO Q6H PRN PRN Reason: FOR PAIN Stop: 07/17/16 22:33 Last Admin: 05/20/16 03:59 Dose: 1 tab Sertraline HCl (Zoloft) 50 mg PO DAILY EZRA PRN Reason: Protocol Stop: 07/18/16 08:59 Last Admin: 05/23/16 09:00 Dose: Not Given Temazepam (Restoril) 30 mg PO HS PRN; Protocol PRN Reason: Insomnia Stop: 07/17/16 22:28 Last Admin: 05/22/16 21:55 Dose: 30 mg General: Alert, Oriented x3, Cooperative, No acute distress HEENT: Atraumatic Neck: Supple Lungs: Clear to auscultation Abdomen: Bowel sounds, Soft Extremities: Other (No edema) Neurological: Other (Non ambulatory at this moment) Skin: Other (Rectal wound clean) Psych/Mental Status: Mental status NL - Procedures Procedures: Procedures Procedure Code Date COMPRESSION OF BACK USING PRESSURE DRESSING [id number] 05/18/16 EXCISION OF LEFT PELVIC BONE, OPEN APPROACH [id number] 05/18/16 NEG PRESS WOUND TX </=50 CM [address] 05/18/16 REMOVAL OF PRESSURE SORE 73559 05/18/16 Assessment/Plan - Problem List Patient Problems: All Active Problems OPEN LESION INNER BUTTOCK (Acute ~05/18/16) - Assessment Assessment: Patient is awake, crying due that she got the information that tumor is not operable, by oncology recommendation. Patient refused central line to received antibiotics. She refused hospice services. She requested send [facility] to [facility]. I will follow this patient at the detention. Dx: Anal abcess and cellulitis, Rectal Ca. HTN, Depresion, colostomy in place. - Plan Plan: patient will be discharge to [facility]. [facility]. Nutritional Asmnt/Malnutr-PDOC - Dietary Evaluation Malnutrition Findings (Please click <Entered> for more info): Nutritional Asmnt/Malnutrition Start: 05/19/16 11: 06 Text: Status: Complete Freq: Document 05/19/16 11:06 GSUN (Rec: 05/19/16 11:12 [email or web address]) Nutritional Asmnt/Malnutrition Patient General Information Nutritional Screening Consult Diagnosis Abscess and cellulitis Pertinent Medical Hx/Surgical Hx Rectal cancer on chemotherapy, HTN, depression, colostomy in place Subjective Information 61 year old female from SNF. RD consult for cellulitis of left buttock. Progress note: debridement scheduled for today. Pt was away to OR during visit. Spoke to RN, pt NPO this AM. Current Diet Order/ Nutrition Support Regular Pertinent Medications Iron, Dilaudid, Vancomycin, Zofran Pertinent Labs Reviewed. Nutritional Hx/Data Height 1.65 m Height (Calculated Centimeters) 165.1 Current Weight (lbs) 49.895 kg Weight (Calculated Kilograms) 49.9 Weight (Calculated Grams) 02780.2 [place] Body Weight 125 Weight Status Underweight GI Symptoms Food Allergies No Skin Integrity/Comment: Percy 15. Wound care: left buttock abscess Estimated Nutritional Goals Calories/Kcals/Kg IBW 125lb/56.8kg Kcals Calculated 1704-1988kcal (30-35kcal/kg) Protein Calculated 80-91g (1.4-1.6g/kg) Fluid: ml 1704-1988ml (1ml/kcal) Nutritional Problem 1. Problem Problem Increased prot and kcal needs related to Etiology hypermatabolic state, underweight aeb Signs/Symptoms: rectal cancer undergoing chemotherapy, risk of malnutrition, BMI 18.3, wound healing Intervention/Recommendation Comments 1. Resume regular diet. Monitor PO intake, pt is udnerweight with risk of weight loss/malnutrition related to cancer on chemotherapy. 2. 1 packet prosource for additional protein for wound healing and cancer. Expected Outcomes/Goals Expected Outcomes/Goals 1. Pt to meet at least 100% of estimated nutritional needs.
--- NOTE | 2016-05-23 20:10 | Consultation ---
DATE OF CONSULTATION: 05/23/2016 HISTORY OF PRESENT ILLNESS: The patient is a 61-year-old female who is well known to me for the past few years. She was diagnosed with rectal cancer and treated with neoadjuvant chemotherapy and her treatment was delayed on multiple occasions because of noncompliance. Initially, she underwent diverting colostomy and the patient stopped getting treatment and she had relapse and progression of the cancer locally with protrusion of tumor from the anal area. She is not a surgical candidate, and she was restarted on palliative chemotherapy with good control of the tumor, that was protruding from the anal area. The patient has been having recurrent perianal infections in the past few months and she was seen in the office in the 1st week and given oral antibiotics; however, the pain was excruciating and she presents to the hospital and was started on IV antibiotics, ceftriaxone, and vancomycin with improvement of the symptoms. For ____ history, please refer to my previous consultation. PHYSICAL EXAMINATION: GENERAL: The patient is awake, alert, and oriented. VITAL SIGNS: Stable and afebrile. HEENT: Atraumatic. NECK: Supple. CHEST: Right-sided MediPort. ABDOMEN: Soft, colostomy in place. No bleeding. There is tenderness around the anal area, more on the left side and left coccyx area. IMAGING DATA: The pelvis MRI today showed ____ of the rectum and perianal margins consistent with neoplasm. ASSESSMENT: 1. Locally advanced rectal cancer. She is not a surgical candidate. The patient will be continued on palliative chemotherapy whenever she is stable. 2. Perianal abscess, better controlled with IV antibiotics, continue on antibiotics and may consider drainage if needed. The patient is not a surgical candidate for the management of rectal cancer at this time. Thank you for the opportunity to participate in the care of this interesting case with you. JOB# [id number]
--- NOTE | 2016-06-07 23:00 | Discharge Summary ---
DATE OF DISCHARGE: 05/23/2016 CHIEF COMPLAINT: Rectal cellulitis and abscess. HISTORY OF PRESENT ILLNESS: This is the case of a 61-year-old female who I follow in the retirement. I received a call from retirement and stated that she came from Oncology consult with complaining of rectal abscess. This is something that she had been having before and was treated with antibiotic. The patient has history rectal cancer and actually she is on treatment. Rectal cancer is not surgical removal and apparently stage IV. HOSPITAL COURSE AND TREATMENT: She was hospitalized in the medical/surgical floor. She was started on IV vancomycin and Zosyn, IV normal saline, regular diet. Consult with Dr. Cagle, surgeon, and Dr. Edwar Rosado, Infectious Disease, and Oncology were requested and recommendations were followed. The recommendation from Surgery was to debride the abscess and remove the mass, the cancer in the colon. Oncologist Dr. Corona recommended not to do surgery due to that is not operable and cancer is stage 4, the reason why she was continued with IV antibiotics. After 6 days in the hospital and continued use of antibiotic, it was considered that she received the maximum benefit of hospitalization and she could be sent back to retirement with p.o. antibiotics. At the moment of the discharge, the patient was awake, alert, in no acute distress. [employer] ON THIS CASE: Dr. Cagle, surgeon; Dr. Edwar Rosado, Infectious Disease; and Dr. Corona, Oncology. DISPOSITION: The patient is sent back to retirement to continue treatment. DIAGNOSES: 1. Rectal abscess and cellulitis. 2. Rectal cancer, stage IV. JOB# [id number]
== END 2016-05-23 17:00 | DRG 364 ==
LOC: ER 11:33 → MSI 14:50
PROVIDERS: ADMIT General Practice; ATTEND General Practice
PROC: 2W15X6Z Compression of Back using Pressure Dressing (ICD-10-PCS; principal; 2016-05-20)
PROC: 0QB30ZZ Excision of Left Pelvic Bone, Open Approach (ICD-10-PCS; 2016-05-20)
DX: L02.31 Cutaneous abscess of buttock (principal); R64 Cachexia; E46 Unspecified protein-calorie malnutrition; K61.0 Anal abscess; I10 Essential (primary) hypertension; F32.9 Major depressive disorder, single episode, unspecified; C20 Malignant neoplasm of rectum; L03.317 Cellulitis of buttock; N73.9 Female pelvic inflammatory disease, unspecified; Z68.1 Body mass index [BMI] 19.9 or less, adult; Z93.3 Colostomy status; Z91.041 Radiographic dye allergy status; Z82.49 Family history of ischemic heart disease and other diseases of the circulatory system; Z88.8 Allergy status to other drugs, medicaments and biological substances
CPT/HCPCS: 36415-UA; 80048-TC; 80053-TC; 80202-TC; 85007-TC; 85025-TC; 85027-TC; 85610-TC; 85730-TC; 87070-90; 87075-90; 87205-90; J0696; J1170; J2250; J2543; J2704; J3370; J7030; V2790; X6206; Z7610